=== PATIENT | female | born 1950 | race Caucasian/White ===

== ENCOUNTER 2021-02-25 08:25 | Emergency (ER) | payer MEDICARE, OTHER, SELFPAY ==
[2021-02-25 08:29] VITALS: BP 129/46; PULSE 73; RESP 18; TEMP 36.6; O2SAT 99; BMI 23.4
--- NOTE | 2021-02-25 08:53 | ED_ITS ---
HPI - Anxiety General Chief Complaint: Anxiety Stated Complaint: SHAKING FEELING Time Seen by Provider: 02/25/21 08:53 Source: patient Mode of arrival: ambulatory Limitations: no limitations History of Present Illness HPI narrative: patient feel anxious inside, she is concerned about her pacemaker. Patient does not take medication for anxiety. Patient has this feeling since last night. Patient states she is safe and no one is hurting her. No sexual abuse. Patient denies suicidal or homicidal ideation MD complaint: anxiety Onset (ago): hour(s) Symptoms: palpitations Severity: moderate Quality: constant Provoking factors: emotional stress Relieving factors: nothing Related Data Previous Rx's Medication Instructions Recorded hydroxyzine HCl 25 mg tablet 25 mg PO TID PRN #14 tab 02/25/21 Allergies Allergy/AdvReac Type Severity Reaction Status Date / Time No Known Allergies [NKA] Allergy Mild NOT Unverified 01/13/20 15:58 APPLICABLE Review of Systems Constitutional: Constitutional: Reports no additional constitutional complaint s Eyes: Eyes: Reports no additional eye complaints ENT: Denies dizziness Cardiovascular: Cardiovascular: Reports no additional cardiovascular complaints Respiratory: Respiratory: Reports as per HPI Gastrointestinal: Gastrointestinal: Reports no additional gastrointestinal complaints Genitourinary: Genitourinary: Reports no additional female genitourinary complaints Musculoskeletal: Musculoskeletal: Reports no additional musculoskeletal compla ints Integumentary/Breasts: Skin/Breast: Denies rash Neurologic: Reports system reviewed and no additional complaints, except as documented, Denies dizziness and Denies Sensory deficit (Neuro) Psychiatric: Psychiatric: Denies anxiety PMFSH Social History Social History Advance Directives: No Advance Directives Information Provided: Yes Physical Exam Vital Signs: Vital Signs: Last Vital Signs Temp 97.8 F 02/25/21 08:29 Pulse 73 02/25/21 08:29 Resp 18 02/25/21 08:29 BP 129/46 L 02/25/21 08:29 Pulse Ox 99 02/25/21 08:29 Body Mass Index 23.4 Const: Other: very anxious and tearful Nutritional Appearance: average body habitus Orientation/consciousness: oriented to person and patient oriented x3 Limitations: no limitations HENMT: Head: Yes normal to inspection Ears: external ears normal General nose exam: Normal external nose present Mouth: Normal oral and palatal mucosa present and oropharynx normal Throat: Yes posterior oropharynx normal Eyes: General: appearance normal, both eyes and all related structures Neck: Other: supple Neck: Yes normal visual inspection Chest: Chest palpation & inspection: normal inspection of the chest Resp: Auscultation: clear to auscultation bilaterally Cardio: Jugular venous distension: no JVD Rate: regular rate Rhythm: regular rhythm Heart sounds: S1 normal heart sound present and S2 normal hear t sound present GI: Inspection: Yes normal to inspection Palpation (GI): Soft to palpation, nontender and No hepatosplenomegaly present Auscultation: normal bowel sounds : General: Yes no CVA tenderness Back/Spine/Pelvis: Back: no CVA tenderness Skin: General skin exam: no rashes or lesions noted Neuro: General: oriented to person and patient oriented x3 Cranial nerves: Yes CN's II-XII intact bilaterally Motor exam (neuro): 5/5 motor strength present throughout Sensory Exam: No Sensory deficit (Neuro) Extrem: General: Yes normal to inspection Psych: Appearance: grossly normal Course Reevaluation(s) Reevaluation #1: patient appears more relaxed will dc home on atarax. Still stating that she is safe at home, no suicidal or homicidal ideations Time: 10:07 MDM - Anxiety ECG Data Attestation: I personally reviewed and interpreted this ECG as follows: Interpretation: Atrial paced rate 60, no st or twave changes Discharge Plan Discharge Clinical Impression: Acute anxiety Patient Disposition: Home, Self-Care Instructions: Anxiety (ED) Prescriptions: New hydroxyzine HCl 25 mg tablet 25 mg PO TID PRN (Reason: anxiety) Qty: 14 RF: 0 Referrals: Kevin Kevin MD [Primary Care Provider] - 1 week
--- NOTE | 2021-02-25 09:00 | ECG_ITS ---
Test Reason : anxiety Blood Pressure : / mmHG Vent. Rate : 062 BPM Atrial Rate : 062 BPM P-R Int : 204 ms QRS Dur : 080 ms QT Int : 408 ms P-R-T Axes : 000 020 022 degrees QTc Int : 414 ms Atrial-paced rhythm prior ekg showed vent paced beats QRS duration has decreased Referred By: Deric Avina Electronically Signed By:THIEN BRADLEY MD
[2021-02-25] MEDS: LORazepam 2 MG/ML VIAL 1 MG IM (09:10)
== END 2021-02-25 10:29 | disposition home or self-care (01) ==
PROVIDERS: Emergency Provider Emergency Medicine; PCP Internal Medicine
DX: F41.9 Anxiety disorder, unspecified (principal); E78.5 Hyperlipidemia, unspecified; Z95.0 Presence of cardiac pacemaker; Z79.899 Other long term (current) drug therapy
CPT/HCPCS: 93005; 96372; 99283; 99284; J2060

== ENCOUNTER 2021-03-11 09:40 | Emergency (ER) | payer MEDICARE, OTHER, SELFPAY ==
--- NOTE | ~2021-03-11 | XR_ITS ---
EXAMINATION: XR KNEE, RIGHT CLINICAL INFORMATION: Knee giving out COMPARISON: Previous x-ray June 2013 TECHNIQUE: Four views of the right knee. FINDINGS: Bone alignment is normal. No fracture or dislocation is seen. There is a bipartite patella. There may be subchondral cystic changes of the patella at the patellofemoral joint. Joint spaces are otherwise normal. There is no joint effusion. There is no joint effusion. XR/XR knee RT 4V IMPRESSION: Bipartite patella and question subchondral cystic changes at the patellofemoral joint.
[2021-03-11 09:44] VITALS: BP 140/68; PULSE 66; RESP 15; TEMP 36.7; O2SAT 97
[2021-03-11 10:39] VITALS: BP 140/68; PULSE 66; RESP 18; TEMP 36.7; O2SAT 97; BMI 24.0
--- NOTE | 2021-03-11 11:28 | ED_ITS ---
HPI - Extremity Problem General Chief complaint: Extremity Problem Stated complaint: not feeling well r leg and hands numbness Time Seen by Provider: 03/11/21 10:56 Source: patient Mode of arrival: ambulatory Limitations: no limitations History of Present Illness HPI Narrative: 70-year-old female presenting to the ED with complaints of her right knee giving out since this morning. She reports that she has not had any falls or injuries to the knee. She reports also her left fingertips feel cold although this has happened in the past and she does not believe it is related to her right knee giving out. She denies any dizziness, headaches, changes in vision, nausea/vomiting, neck pain/stiffness, chest pain or shortness of breath, dyspnea on exertion, orthopnea, numbness/tingling/paresthesias, back pain, fal ls, head trauma, focal weakness or general weakness, palpitations, lower extremity edema or calf tenderness or any other symptoms complaints or concerns at this time. Denies recent travel or sick contacts. MD Complaint: other (Right knee giving out) Onset (ago): day(s) (Started today) Pain Consistency: constant Location: right and knee Radiation: none Relieving factors: nothing Exacerbating factors: weight bearing and walking Associated symptoms: denies other symptoms Related Data Previous Rx's Medication Instructions Recorded hydroxyzine HCl 25 mg tablet 25 mg PO TID PRN #14 tab 02/25/21 Allergies Allergy/AdvReac Type Severity Reaction Status Date / Time No Known Allergies [NKA] Allergy Mild NOT Verified 03/11/21 10:41 APPLICABLE Review of Systems Review of Systems: Constitutional : No Weight loss, No Fever, No Chills, No Night Sweats, No Fatigue, No Malaise ENT/Mouth : No Hearing loss, No Ear Pain, No Nasal Congestion, No Sinus Pain, No Hoarseness, No sore throat, No Rhinorrhea, No Swallowing Difficulty Eyes: No Eye Pain, No Swelling, No Redness, No Foreign Body, No Discharge, No Vision Changes Cardiovascular : No Chest Pain, No SOB, No Dyspnea on Exertion, No Orthopnea, No Edema, No Palpitations Respiratory : No Cough, No Sputum, No Wheezing, No Smoke Exposure, No Dyspnea Gastrointestinal : No Nausea, No Vomiting, No Diarrhea, No Constipation, No abdominal Pain, No Hematochezia, No Melena Genitourinary : no irregular bleeding, No Dysuria, No Urinary Frequency, No Hematuria, No Urinary Incontinence, No Urgency, No Flank Pain, No Urinary Flow Changes, No Hesitancy Musculoskeletal : + right knee giving out, No joint pain, No Myalgias, No Joint Swelling Skin : No Skin Lesions, No rash Neuro : No Weakness, No Numbness, No Paresthesias, No Loss of Consciousness, No Dizziness, No Headache Psych : No Anxiety/Panic, No Depression, No SI/HI/AH/VH, No Social Issues, Heme/Lymph: No Bruising, No Bleeding,No Lymphadenopathy Endocrine : No Polyuria, No Polydipsia, No Temperature Intolerance Yes all other systems are reviewed and are negative [facility] Past Medical History Attestation statement: The following information was validated with the patient. Medical History Hyperlipidemia Pacemaker Social History Social History Advance Directives: No Advance Directives Information Provided: No Physical Exam Vital Signs: Vital Signs: Last Vital Signs Temp 98.1 F 03/11/21 10:39 Pulse 66 03/11/21 10:39 Resp 18 03/11/21 10:39 BP 140/68 H 03/11/21 10:39 Pulse Ox 97 03/11/21 10:39 Body Mass Index 24.0 Vital signs have been reviewed as normal and appeared to be correct. Blood pressure 140/68. Heart rate normal. Respiration rate normal. Temperature normal. Oxygen saturation normal. Appearance: Alert. Oriented X3. No acute distress. Head: Normal external exam. Normocephalic. Atraumatic. Able to rotate head bilaterally. Eyes: PERRLA. EOMI. No nystagmus noted. Conjunctiva and sclera normal. Eyelids normal. Corneal reflex normal. ENT: Hearing normal. Pharynx normal. Uvula midline. tongue midline. Moist mucous membranes. No trismus noted. No drooling noted. No muffled voice noted. No nystagmus noted. Neck: Normal inspection. Neck supple. FROM. No adenopathy. Trachea midline. Thyroid Normal. No meningeal signs. No neck mass noted. CVS: Normal heart rate and rhythm. Heart sound normal. No murmurs noted. Pulses normal throughout. Respiratory: No respiratory distress. Painless inspiration. Breath sounds normal. No wheezes/rales/rhonchi noted. Chest nontender. No accessory muscle usage noted or decreased air movement noted. Abdomen: Soft and nontender. Bowel sounds normal in all 4 quadrants. No distention noted. No organomegaly noted. No visible injury noted. Back: No CVA tenderness. Full range of motion noted. Skin: Skin warm and dry. Normal skin color. Normal skin turgor. No rashes/lesions/lacerations noted. Extremities: Patient does not have any tenderness palpation on palpation to the right knee she does not have any signs of infection there is no soft tissue swelling there is no obvious ligamentous or tendon injury. She has full range of motion of the right knee. There is no calf tenderness to bilateral legs. T here is No lower extremity edema. Otherwise all other Extremities exhibit normal range of motion and nontender. Able to shrug shoulders bilaterally and keep up against resistance. Neuro: Oriented X 3. No motor deficit. No sensory deficit. Reflexes normal. Moving all extremities. No focal motor deficits. Cranial nerves II-XI intact bilaterally. Facial strength normal. Normal cognition. Speech normal. Gait normal. Strength 5/5 throughout. No pronator drift. No tremor noted. No fasciculations noted. No rigidity noted. Muscle tone normal throughout. No asterixis noted. [id number] test normal. Heel to hernandes test normal. Tandem gait normal. Does not sway with eyes open. Romberg test negative. Rapid alternating movement upper extremity normal. Rapid alternating movement lower extremity normal. Hand drop from overhead Misses face. Course Course Course Narrative: - 70-year-old female presenting to the ED with complaints of her right knee giving out since this morning. She reports that she has not had any falls or injuries to the knee. She reports also her left fingertips feel cold although this has happened in the past and she does not believe it is related to her right knee giving out. On exam patient is alert and oriented x3. Not in any acute distress. No focal neuro deficits are noted. Lungs clear to auscultation. CV RRR. Full range of motion of all extremities. Neuro intact bilaterally distally on all 4 extremities. Reflexes intact bilaterally this can all 4 extremities. Normal steady gait. Will obtain x-ray of right knee and re-evaluate. Reevaluation(s) Reevaluation #1: - right x-ray revealed Bipartite patella and question subchondral cystic changes at the patellofemoral joint. - will place in an Dwayne wrap and refer to her PCP so she can get referral to therapy or orthopedic and to return if any new or worsening symptoms. Patient understands agrees with this plan. Time: 11:40 MDM - Extremity (Nontraumatic) Medical Records Attestation: I reviewed the patient's medical records. Lab Data Attestation: I reviewed the patient's lab results. Imaging Data Right knee x-ray: Attestation: I personally reviewed and interpreted this imaging study as follows: Radiologist's impression: FINDINGS: Bone alignment is normal. No fracture or dislocation is seen. There is a bipartite patella. There may be subchondral cystic changes of the patella at the patellofemoral joint. Joint spaces are otherwise normal. There is no joint effusion. There is no joint effusion.? XR/XR knee RT 4V IMPRESSION: Bipartite patella and question subchondral cystic changes at the patellofemoral joint. Discharge Plan Discharge Clinical Impression: Bipartite patella Patient Disposition: Home, Self-Care Instructions: Knee Pain (ED) Prescriptions: No Action hydroxyzine HCl 25 mg tablet 25 mg PO TID PRN (Reason: anxiety) Qty: 14 RF: 0 Referrals: Kevin Kevin MD [Primary Care Provider] - 2 days Print Language: American
== END 2021-03-11 11:52 | disposition home or self-care (01) ==
PROVIDERS: Emergency Provider Emergency Medicine; PCP Internal Medicine
DX: M25.561 Pain in right knee (principal); Q74.1 Congenital malformation of knee
CPT/HCPCS: 73564; 99283

== ENCOUNTER 2021-05-07 07:08 | Outpatient (REF) | payer MEDICARE, OTHER, SELFPAY | END 2021-05-07 07:09 | disposition home or self-care (01) | LOC: HO.HOSX 07:08 | PROVIDERS: Visit Provider Physician Assistant | DX: Z13.89 Encounter for screening for other disorder (principal) ==

== ENCOUNTER 2024-07-31 01:42 | Emergency (ER) | payer MEDICARE, OTHER, SELFPAY ==
[2024-07-31 01:45] VITALS: BP 150/43; PULSE 64; RESP 18; TEMP 36.8; O2SAT 98; BMI 25.4
--- NOTE | 2024-07-31 03:35 | ED_ITS ---
HPI - Extremity Problem General Chief complaint: Extremity Problem Stated complaint: leg pain Time Seen by Provider: 07/31/24 03:29 Source: patient Mode of arrival: ambulatory Limitations: no limitations History of Present Illness ED Provider: Dr. Dee Bustillos HPI Narrative: Patient comes to the emergency room complaining of bilateral lower extremity pain. Patient states the pain starts in the front of her left leg/hernandes and then the pain jumps to the right knee and then the pain jumped again to the left upper thigh. Patient states that she is concerned because she has a pacemaker. Patient denies muscle cramps. Patient denies calf pain, denies any swelling or any recent injuries. Related Data Previous Rx's ?Medication ?Instructions ?Recorded hydroxyzine HCl 25 mg tablet 25 mg PO TID PRN anxiety #14 tabs 02/25/21 Allergies Allergy/AdvReac Type Severity Reaction Status Date / Time No Known Allergies [NKA] Allergy Mild NOT Verified 07/31/24 01:47 APPLICABLE Review of Systems 2 Review of Systems: Constitutional : No Weight loss, No Fever, No Chills, No Night Sweats, No Fatigue, No Malaise ENT/Mouth : No Hearing loss, No Ear Pain, No Nasal Congestion, No Sinus Pain, No Hoarseness, No sore throat, No Rhinorrhea, No Swallowing Difficulty Eyes: No Eye Pain, No Swelling, No Redness, No Foreign Body, No Discharge, No Vision Changes Cardiovascular : No Chest Pain, No SOB, No Dyspnea on Exertion, No Orthopnea, No Edema, No Palpitations Respiratory : No Cough, No Sputum, No Wheezing, No Smoke Exposure, No Dyspnea Gastrointestinal : No Nausea, No Vomiting, No Diarrhea, No Constipation, No abdominal Pain, No Hematochezia, No Melena Genitourinary : no irregular bleeding, No Dysuria, No Urinary Frequency, No Hematuria, No Urinary Incontinence, No Urgency, No Flank Pain, No Urinary Flow Changes, No Hesitancy Musculoskeletal : Complaining of intermittent bilateral lower extremity pain, pain fluctuating from leg to leg. No joint pain, No Myalgias, No Joint Swelling Skin : No Skin Lesions, No rash Neuro : No Weakness, No Numbness, No Paresthesias, No Loss of Consciousness, No Dizziness, No Headache Psych : No Anxiety/Panic, No Depression, No SI/HI/AH/VH, No Social Issues, Heme/Lymph: No Bruising, No Bleeding,No Lymphadenopathy Endocrine : No Polyuria, No Polydipsia, No Temperature Intolerance PMF Past Medical History Medical History Hyperlipidemia Pacemaker Social History Social History Advance Directives: No Advance Directives Information Provided: Yes Physical Exam 2 Vital Signs: Vital Signs: Last Vital Signs Temp 98.2 F 07/31/24 01:45 Pulse 64 07/31/24 01:45 Resp 18 07/31/24 01:45 BP 150/43 H 07/31/24 01:45 Pulse Ox 98 07/31/24 01:45 O2 Del Method Room Air 07/31/24 01:45 BMI result Body Mass Index 25.4 Const: Other: Appearance: Alert. Oriented X3. No acute distress. Eyes: Pupils equal, round and reactive to light. ENT: Pharynx normal. Neck: Normal inspection. Neck supple. No lymph nodes noted. No crepitus CVS: Normal heart rate and rhythm. Pulses normal. Normal S1 and S2 Respiratory: No respiratory distress. Breath sounds normal. No Wheezing. No rales Abdomen: Soft and nontender. No rigidity. No distention. Skin: Skin warm and dry. Normal skin color. Normal skin turgor. Extremities: No lower extremity edema. No Lacerations. No Rash, no pain to palpation, no lower extremity erythema or edema Neuro: Oriented X 3. No motor deficit. No sensory deficit. Moving all extremities. No slurred speech. CN 2 through 12 grossly intact Psych: calm, cooperative, normal affect Course Course Course Narrative: Patient's labs pending Medications Administered Discontinued Medications Generic Name Dose Route Start Last Admin Trade Name Freq PRN Reason Stop Dose Admin Gabapentin 100 mg 07/31/24 03:35 07/31/24 03:51 Gabapentin 100 Mg Capsule PO 07/31/24 03:36 100 mg ONCE ONE Administration Medical Decision Making Medical Decision Making [facility] Narrative: My interpretation of labs: Patient's hemoglobin hematocrit in a bit decreased. Patient states she is known to have anemia. Chemistry does not show any acute abnormality, normal troponin, normal CPK. Patient was given gabapentin 100 mg Patient's electrolytes within normal limits. Discussed with the patient that if her legs hurt, she should stopped taking atorvastatin. Patient will follow-up with the primary care physician. Lab Data 07/31/24 03:46 07/31/24 03:46 Labs: Lab Results 07/31/24 Range/Units 03:46 WBC 6.2 (4.8-10.8) X10*3/uL RBC 3.62 L (4.20-5.50) X10*6/uL Hgb 10.9 L (12.0-16.0) g/dl Hct 32.9 L (37.0-47.0) % MCV 90.9 (80.0-98.0) fL MCH 30.1 (27.0-33.0) pg MCHC 33.1 (31.0-35.0) g/dl RDW 13.5 (11.0-16.0) % Plt Count 173 (160-400) X10*3/uL MPV 11.7 (9.4-12.3) fL Immature Gran % (Auto) 0.2 (0.0-0.4) % Neut % (Auto) 67.7 (45-73) % Lymph % (Auto) 17.2 L (20-40) % [place] % (Auto) 11.5 H (2-11) % Eos % (Auto) 2.6 (0-4) % Baso % (Auto) 0.8 (0-2) % Lymph # (Auto) 1.1 L (1.2-4.9) X10*3/uL [place] # (Auto) 0.7 (0.1-1.2) X10*3/uL Eos # (Auto) 0.2 (0.0-0.4) X10*3/uL Baso # (Auto) 0.1 (0.0-0.2) X10*3/uL Abs Immat Gran (auto) 0.01 (0.00-0.03) X10*3/uL Absolute Neuts (auto) 4.2 (2.0-8.3) x10*3/uL Absolute Nucleated RBC 0.000 (0.0-0.012) X10*3/uL Nucleated RBC % (auto) 0.0 (0.0-0.2) /100WBC Sodium 141 (135-145) mmol/L Potassium 4.4 (3.3-5.1) mmol/L Chloride 112 H (96-108) mmol/L Carbon Dioxide 23 (22-29) mmol/L Anion Gap 10 L (12-20) BUN 26 H (9-16) mg/dL Creatinine 1.05 (0.5-1.4) mg/dL Estim Creat Clear Calc 37.2 Estimated GFR 52 Random Glucose 92 (60-115) mg/dL Calcium 9.2 (8.4-10.2) mg/dL Magnesium 2.3 (1.6-2.6) mg/dL Total Bilirubin 0.4 (0.0-1.0) mg/dL Direct Bilirubin 0.1 (0.0-0.5) mg/dL AST 28 (5-31) U/L ALT 21 (0-31) U/L Alkaline Phosphatase 73 (39-117) U/L Total Creatine Kinase 101 (26-140) U/L Troponin I High Sens 4.5 (<3.5-17.0) ng/L Total Protein 7.0 (6.5-8.0) g/dL Albumin 4.2 (3.5-5.0) g/dL Discharge Plan Discharge Clinical Impression: Myalgia Patient Disposition: Home, Self-Care Instructions: Musculoskeletal Pain (ED) Additional Instructions: Please stop taking atorvastatin. Please have close follow-up with your primary care physician. Prescriptions: No Action hydroxyzine HCl 25 mg tablet 25 mg PO TID PRN (Reason: anxiety) Qty: 14 0RF Print Language: French
[2024-07-31 03:51] LABS: MANUAL DIFF FLAG NO
[2024-07-31] MEDS: Gabapentin 100 MG CAPSULE PO (03:51)
[2024-07-31 03:52] LABS: Basophils Absolute Auto 0.1 X10*3/uL (0.0-0.2); Basophils Percent Auto 0.8 % (0-2); Eosinophils Absolute Auto 0.2 X10*3/uL (0.0-0.4); Eosinophils Percent Auto 2.6 % (0-4); Hematocrit 32.9 % (37.0-47.0); Hemoglobin 10.9 g/dl (12.0-16.0); Imm Gran Abs Auto 0.01 X10*3/uL (0.00-0.03); Imm Gran Pct Auto 0.2 % (0.0-0.4); Lymphocytes Absolute Auto 1.1 X10*3/uL (1.2-4.9); Lymphocytes Percent Auto 17.2 % (20-40); Mean Corpuscular HGB Conc 33.1 g/dl (31.0-35.0); Mean Corpuscular Hemoglobin 30.1 pg (27.0-33.0); Mean Corpuscular Volume 90.9 fL (80.0-98.0); Mean Platelet Volume 11.7 fL (9.4-12.3); Monocytes Absolute Auto 0.7 X10*3/uL (0.1-1.2); Monocytes Percent Auto 11.5 % (2-11); Neutrophils Absolute Auto 4.2 x10*3/uL (2.0-8.3); Neutrophils Percent Auto 67.7 % (45-73); Platelet Count 173 X10*3/uL (160-400); Red Blood Count 3.62 X10*6/uL (4.20-5.50); Red Cell Distribution Width 13.5 % (11.0-16.0); White Blood Count 6.2 X10*3/uL (4.8-10.8)
--- NOTE | 2024-07-31 03:52 | PC.NURSE ---
pt medicated according to mar awaiting lab results
[2024-07-31 04:09] LABS: Alanine Aminotransferase 21 U/L (0-31); Albumin Level 4.2 g/dL (3.5-5.0); Alkaline Phosphatase 73 U/L (39-117); Anion Gap 10 (12-20); Aspartate Amino Transferase 28 U/L (5-31); Bilirubin Direct 0.1 mg/dL (0.0-0.5); Bilirubin Total 0.4 mg/dL (0.0-1.0); Blood Urea Nitrogen 26 mg/dL (9-16); Calcium 9.2 mg/dL (8.4-10.2); Carbon Dioxide 23 mmol/L (22-29); Chloride 112 mmol/L (96-108); Creatinine Clr Calc Pharmacy 37.2; Estimated Glomerular Filt Rate 52; Glucose Random 92 mg/dL (60-115); Magnesium 2.3 mg/dL (1.6-2.6); Potassium 4.4 mmol/L (3.3-5.1); Sodium 141 mmol/L (135-145)
[2024-07-31 04:14] LABS: Troponin-I High Sensitivity 4.5 ng/L (<3.5-17.0)
[2024-07-31 05:11] VITALS: BP 150/43; PULSE 64; RESP 18; TEMP 36.8; O2SAT 98
== END 2024-07-31 05:12 | disposition home or self-care (01) ==
PROVIDERS: Emergency Provider Emergency Medicine
DX: M79.10 Myalgia, unspecified site (principal); E78.5 Hyperlipidemia, unspecified; Z95.0 Presence of cardiac pacemaker; Z79.899 Other long term (current) drug therapy
CPT/HCPCS: 36415; 80048; 80076; 82550; 83735; 84484; 85025; 99283; 99284

== ENCOUNTER 2024-11-25 13:32 | Outpatient (AMB) | payer MEDICARE, OTHER, SELFPAY ==
--- OUTSIDE RECORDS SUMMARY | 2024-11-25 13:44 | XMS_ITS ---
Author Name [facility] Organization Unknown Care Team Organization Name Specialty Phone Email Start Date End Da te [facility] 10/04/2022 12/15/2023 [facility] Danni Linda [facility] 03/05/2022 12/15/2023
--- OUTSIDE RECORDS SUMMARY | 2024-11-25 13:44 | XMS_ITS | Clinical Summary ---
Author Organization [facility] Address [address] [place] [id number] Phone Care Team Providers Care Sales Service Manager Name Role Phone Kevin Kevin MD Primary Care Provider [phone] Immunizations Immunization Administration Dates Next Due COVID-19 (Pre-02/17) Moderna Vaccine, mRNA, PF 0 06/22/2020,05/25/2020 Social History Tobacco Use Types Packs/Day Years Used Date Smoking Tobacco: Never Assessed Education Answer Date Recorded Are you interested in more education? Not on tricia e 08/22/2022 Are you concerned about learning? Not on file 08/22/2022 No 08/22/2022 No 08/22/2022 Digital Access Answer Date Recorded No 09/23/2022 No 09/23/2022 No 09/23/2022 Reliable internet access at home? Not on file 09/23/2022 Device with a working camera? Not on file Comments Unknown Sex and Gender Information Value Date Recorded Sex Assigned at Not on file Legal Sex Female 7:20 PM EST Gender Identity Not on file Sexual Orientation Not on file Plan of Treatment Health Maintenance Due Date Last Done Comments DEPRESSION SCREENING 1963 SMOKING Hx and SMOKELESS TOBACCO SCREENING 11/21/1964 HEPATITIS C SCREENING 11/21/1969 COLOGUARD 11/21/1996 COLONOSCOPY 11/21/1996 COLORECTAL CANCER SCREENING 11/21/1996 FIT TEST 11/21/1996 FOBT 11/21/1996 SIGMOIDOSCOPY 11/21/1996 VIRTUAL COLONOSCOPY 11/21/1996 ZOSTER VACCINES (1 of 2) 11/21/2001 OSTEOPOROSIS SCREENING INITI AL (ONE-TIME) 11/21/2016 Adult Td,Tdap Booster 12/08/2021 12/09/2011 , 08/13/2000 MAMMOGRAM 03/20/2022 03/20/2020 COVID-19 VACCINE (3 - 2023-2 5 season) 2023 06/22/2020, 05/25/2020 LIPID PANEL 04/26/2025 04/26/2020 RSV VACCINE (1 - 1-dose 75+ series) 11/21/2026 PNEUMOCOCCAL VACCINES (50+ years) Completed 03/03/2019, 02/14/2017 HEPATITIS A VACCINES Aged Out No long er eligible based on patient's age to complete this topic HIB VACCINES Aged Out No longer eligi ble based on patient's age to complete this topic MENINGOCOCCAL VACCINES (ACWY) Aged Out No longer eligible based on patient's age to complete this topic MENINGOCOCCAL VACCINES (B) Aged Out N o longer eligible based on patient's age to complete this topic Medical Devices Not on file Insurance MEDICARE PART A & B [facility] MEDICARE SUPPLEMENT MEDICARE PART A & B [employer] MEDICARE SUPPLEMENT MEDICARE PART A & B [employer] MEDICARE SUPPLEMENT MEDICARE PART A & B [employer] MEDICARE SUPPLEMENT MEDICARE PART A & B [employer] MEDICARE SUPPLEMENT MEDICARE PART A & B [facility] MEDICARE SUPPLEMENT MEDICARE PART A & B [facility] MEDICARE SUPPLEMENT MEDICARE PART A & B [facility] MEDICARE SUPPLEMENT MEDICARE PART A & B [facility] MEDICARE SUPPLEMENT Care Teams Sales Service Manager Relationship Specialty Start Date End Date Kevin Kevin MD [address] [place] [id number] PCP - General Internal Medicine 05/24/20 Additional Source Comments The information contained in this document represents components of the legal health record. It is not the complete legal health record.[facility]
--- NOTE | 2024-11-25 13:45 | A.OFFVIS_ITS ---
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 She was treated with memantine and sertraline. She was here at the suggestion of her PCP after decline in memory was apparently noted at recent appointment. Office notes from PCP visit were requested, but were not available for review at the time of this appointment. She was here for appointment alone. Her appointment was scheduled for 3:50pm, however she thought appointment was scheduled for 1:50pm and therefore arrived early. She was very concerned after having some memory testing at her PCPs office and scoring too low. She also reports having difficulty drawing a clock. She was living at home with her . 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 She would double or triple check her work when paying bills. On a few occasions, she has written a check out to the wrong person or company. She was managing her own medications. She was feeling more confused. She also reported feeling weak, off balance, and having some numbness and cramping in R lower leg. She was walking on treadmill 5 days/week. No falls. Sleep was okay with medication. Mood was anxious and depressed. She could not do things that used to do and she was not able to spend as much time with her grandchildren. She was not working with therapist or psychiatrist. [facility] Medical History Hyperlipidemia Pacemaker Review of Systems Const Denies chills, Denies daytime sleepiness, Denies difficulty sleeping, Denies fatigue, Denies fever(s), Denies frequent falls, Denies headache(s), Denies increased appetite, Denies poor appetite, Denies snoring, Denies weakness, Denies weight gain and Denies weight loss Eyes Denies loss of vision ENT Denies vertigo, Denies dizziness and Denies headache(s) Card Denies chest pain at rest, Denies chest pain with activity, Denies syncope, Denies leg edema and Denies palpitations Resp Denies snoring GI Denies constipation, Denies heartburn, Denies diarrhea and Denies nausea Denies urinary frequency, Denies urinary incontinence and Denies urinary urgency Musc Denies abnormal gait, Denies numbness and Denies tingling Skin/Breast Denies dry skin and Denies rash Neuro Denies abnormal gait, Denies vertigo, Denies dizziness, Denies syncope, Denies frequent falls, Denies headache(s), Denies lack of coordination, Denies loss of vision, Reports memory loss, Denies numbness, Denies restless legs, Denies seizure-like activity, Denies tingling, Denies paresthesias, Denies tremor(s) and Denies weakness Psych Reports anxiety, Reports depression, Denies auditory hallucinations, Reports memory loss, Denies visual hallucinations and Denies suicidal ideation Endo Denies fatigue and Denies palpitations Physical Exam Const Other: General Appearance:? normal, in no acute distress. Skin:? no rashes, no significant birthmarks. Heart:? S1, S2 normal, no murmurs. Lungs:? clear anteriorly and posteriorly. Extremities:? no edema. Psych:? alert, cooperative with exam. Neuro Other: Mental Status:?Alert, anxious and tearful at times. MMSE 23/30 Cranial Nerves:?Pupils are equal, round and reactive to light. External occular muscles are intact. Visual sheikh are full. Face is symmetrical. Facial sensations are normal. Tongue is midline. Palate elevates symmetrically. Shoulder shrugging is normal. Hearing to bedside conversation is normal. Motor Exam: Hyperreflexia. Coordination:?No ataxia,?no titubation.? Gait Exam: Within normal limits. Cerebellar Signs:?Izvgnd-ce-[id number] and nyml-gr-[id number] is normal.? Extrapyramidal System:?No tremor, rigidity with normal facial expressions.? Pronator Drift:?Not present.? Involuntary Movements:?No tremors seen.? Speech:?Normal.? Results Reviewed Results Reviewed: Labs in [place] in 2021: CBC ok, HDL 74, LDL 102, A1c5.2, TSH 2.9, CEA 0.83, MRI brain WO at [place] in Jul 2021: mod to sev WM changes suggestive of MVD CT brain WO at [place] in Jul 2021: diff WM hypodensities MRI brain WWO at [facility] in Mar 2016: mod severe WM lesions, mostly supratentorial, post predominance, no enhancement, small amount in yoni, ?demylinating or atypical microvascular disease CT brain WO at [facility] [place] in 2013: WM hypodensities, especially left frontal, no atrophy. Assessment & Plan Assessment & Plan (1) Vascular dementia: Code(s): F01.50 - Vascular dementia, unspecified severity, without behavioral disturbance, psychotic disturbance, mood disturbance, and anxiety Category: Medical Qualifiers: Dementia behavioral or psychological symptom: with mood disturbance Dementia severity: unspecified severity Qualified Code(s): F01.53 - Vascular dementia, unspecified severity, with mood disturbance Plan: Resulting in memory impairment, behavioral symptoms, and imbalance. There is no specific treatment for this condition other than symptomatic management, and symptoms progress over time. Continue memantine 10mg 1 tablet twice a day. It has been 3 years since brain MRI has been done and test was ordered. 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 Stop sertraline 50mg 1 tablet daily. Continue sertraline 100mg 1 tablet daily. Start buproprion 100mg 1/2 tablet daily. Referral to psychiatrist placed. Plan Exam, findings, and plan reviewed with Dr. Peterson. Orders: Orders MR head/brain wo con Today F01.53 - Vascular dementia, unspecified severity, with mood disturbance, I67.850 - Cerebral autosomal dominant arteriopathy with subcortical infarcts and leukoencephalopathy Referrals Psychiatry Referral F32.A - Depression, unspecified Medications: New bupropion HCl 50 mg (1/2 x 100 mg) PO DAILY 15 tabs 1RF 30 days Discontinued sertraline Discontinued Reason: Doctor's Order 50 mg PO DAILY 90 days 90 tabs 1RF Coding Level of Care Code Est Pt Level 4 (08213) Diagnoses Vascular dementia with mood disturbance, unspecified dementia severity F01.53 Dementia behavioral or psychological symptom: with mood disturbance Dementia severity: unspecified severity Cerebral autosomal dominant arteriopathy with subcortical infarcts and leukoencephalopathy I67.850 Depression, unspecified depression type F32.A Depression Type: unspecified
== END 2024-11-25 15:41 | disposition home or self-care (01) ==
LOC: HO.HSM 13:32
PROVIDERS: PCP Internal Medicine; Visit Provider Registered Nurse
DX: F01.53 Vascular dementia, unspecified severity, with mood disturbance (principal); I67.850 Cerebral autosomal dominant arteriopathy with subcortical infarcts and leukoencephalopathy; F32.A Depression, unspecified
CPT/HCPCS: 99214

== ENCOUNTER → 2024-11-25 13:32 | Outpatient (BNVA) | payer MEDICARE, OTHER, SELFPAY | PROVIDERS: PCP Internal Medicine; Visit Provider Registered Nurse | DX: I67.850 Cerebral autosomal dominant arteriopathy with subcortical infarcts and leukoencephalopathy (principal); F01.53 Vascular dementia, unspecified severity, with mood disturbance; F32.A Depression, unspecified | CPT/HCPCS: 99212 ==

== ENCOUNTER → 2024-12-30 07:19 | Outpatient (BNV) | payer MEDICARE, OTHER, SELFPAY | PROVIDERS: Visit Provider Radiology Diagnostic Radiology | DX: R90.82 White matter disease, unspecified (principal); J34.89 Other specified disorders of nose and nasal sinuses | CPT/HCPCS: 70551 ==

== ENCOUNTER 2024-12-30 07:25 | Outpatient (REF) | payer MEDICARE, OTHER, SELFPAY ==
--- NOTE | ~2024-12-30 | MR_ITS ---
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 COMPARISON: None available. TECHNIQUE: MRI of the brain was obtained using routine sequences without contrast. FINDINGS: No restricted diffusion. Bilateral, patchy and confluent white matter in the periventricular white matter, basal ganglia, extracapsular, yoni hyperintense T2 FLAIR signal without associated susceptibility nor restriction. Numerous old lacunar infarcts with the cribriform pattern involving the corpus striatum nuclei and thalami. No acute intracranial hemorrhage, mass effect, midline shift, hydrocephalus or herniation.. Flow-void signal within the main cerebral vessels is normal. Sellar/suprasellar region demonstrates a superior convexity of the pituitary gland without overall measurement less than 10 mm. There is a 6 mm hypointense FLAIR signal within the sella turcica/pituitary gland. The pituitary stalk is midline and measures less than 2 mm in maximal thickness. The optic chiasm is intact without signal abnormality. Craniocervical junction demonstrates normal position of the cerebellar tonsils. No signal abnormality or volume loss in the hippocampi. No gross volume loss of the overall cerebral parenchyma. There is a mucosal thickening in the paranasal sinuses. There is volume loss of the left maxillary sinus. MR/MR head/brain wo con IMPRESSION: No acute stroke/nonhemorrhagic ischemia. No acute intracranial hemorrhage. 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 Chronic paranasal sinus disease, pronounced left maxillary sinus.. Electronically signed by: Fito Mathews MD 12/30/2024 09:04 AM EDT
--- OUTSIDE RECORDS SUMMARY | 2024-12-30 07:28 | XMS_ITS | Encounter Summary ---
Author Organization [facility] Address [address] [place] [address] Care Team Providers Care Carpet Tile Layer Name Role Phone Kevin Kevin MD Primary Care Provider [phone] Reason for Visit * Reason Onset Date Comments Difficulty Urinating 12/28/2024 Encounter Details Date Type Department Care Team ([facility] st Contact Info) Description 12/28/2024 Telephone Adult Medicine [facility] [address] [place] [phone] Kevin Kevin MD [address] [place] [address] Social History Tobacco Use Types Packs/Day Years Used Date Smoking Tobacco: Never Smokeless Tobacco: Never Alcohol Use Standard Drinks/Week Comments No 0 (1 standard drink = 0.6 oz pur e alcohol) Housing Instability Answer Date Recorde d Are you worried that in the next 2 months you may not have stable housing? No 11/23/2024 Food Access & Nutrition Answer Date Rec orded Do you have access to a vari ety of food including fruits and vegetables? No 11/23/2024 Access to Healthcare Answer Date Record ed Within the last 3 months, ho w many times did you visit the emergency department for your medical care? 1 11/23/2024 Health Literacy Answer Date Recorded How often do you need to hav e someone help you when you read instructions, pamphlets, or other written material from your doctor or pharmacy? Never 11/23/2024 Caregiver: How often do you need to have someone help you when you read instructions, pamphlets, or other written material from your doctor or pharmacy? Not on file 11/23/2024 Financial Risk Answer Date Recorded How hard is it for you to pa y for the very basics like food, housing, medical care, and air conditioning / heating? Very hard 11/23/2024 Transportation Answer Date Recorded Has the lack of transportati on kept you from meetings, work, or from getting things needed for daily living? No Has the lack of transportati on kept you from medical appointments or from getting medications? No 11/23/2024 Social Isolation Answer Date Recorded How often do you feel lonely or isolated from those around you? Sometimes 11/23/2024 Food Risk Answer Date Recorded Within the past 12 months we worried whether our food would run out before we got money to buy more. Never true 11/23/2024 Within the past 12 months th e food we bought just didn't last and we didn't have money to get more. Never true 11/23/2024 Dependent Care Answer Date Recorded Do you need help finding or paying for care for your loved ones. For example, children's minister or elderly care for an older adult? No 11/23/2024 Education Answer Date Recorded Do you think completing more education or training, like finishing a GED, going to college, or learning a trade, would be helpful for you? No 11/23/2024 Employment and Income Answer Date Recor ded During the last four weeks, have you been actively looking for work? No 11/23/2024 Living Situation Answer Date Recorded What is your living situation? 0 11/23/2024 Comments No Sex and Gender Information Value Date Recorded Sex Assigned at Not on file Legal Sex Female 3:00 AM EST Gender Identity Not on file Sexual Orientation Not on file documented as of this encounter Progress Notes * Cece Dorado - 12/28/2024 10:07 AM EDT ERROR documented in this encounter Plan of Treatment Upcoming Encounters Date Type Department Care Team (Late st Contact Info) Description 01/17/2025 2:00 PM EDT Office Visit Adult Medicine [facility] [address] [place], [place] [phone] El C[place]allos NP [address] [place], [place] documented as of this encounter Visit Diagnoses Not on filedocumented in this encounter Additional Health Concerns Assessment Noted Time PHQ-9 Depression Total Score: 1 11/24/19 25 11:39 AM EDT documented as of this encounter Care Teams Carpet Tile Layer Relationship Specialty Start Date End Date Kevin Kevin MD [address] [place] [address] PCP - General 02/25/1999 documented as of this encounter
--- OUTSIDE RECORDS SUMMARY | 2024-12-30 07:28 | XMS_ITS | Encounter Summary ---
Author Organization [facility] Address [address] [place] [address] Care Team Providers Care Toll Testboard Worker Name Role Phone eKvin Kevin MD Primary Care Provider [phone] Encounter Details Date Type Department Care Team (Late Contact Info) Description 10/28/2024 Lab Requisition [facility] Main Lab [address] [facility] [place] [phone] Lorenzo Paige PA [address] [place] [address] Pyuria Social History Tobacco Use Types Packs/Day Years Used Date Smoking Tobacco: Never Smokeless Tobacco: Never Alcohol Use Standard Drinks/Week Comments No 0 (1 standard drink = 0.6 oz pur e alcohol) Comments No Sex and Gender Information Value Date Recorded Sex Assigned at Not on file Legal Sex Female 3:00 AM EST Gender Identity Not on file Sexual Orientation Not on file documented as of this encounter Plan of Treatment Upcoming Encounters Date Type Department Care Team (Late st Contact Info) Description 01/17/2025 2:00 PM EDT Office Visit Adult Medicine [facility] [address], [place] [phone] [place]os NP [address], [place] documented as of this encounter Procedures Procedure Name Priority Date/Time Associated Diagnosis Comments CULTURE URINE Routine 10/28/2024 10:34 AM EDT Pyuria documented in this encounter Results * (ABNORMAL) Culture urine (10/28/2024 10:34 AM EDT) Culture, Urine >100,000 CFU/mL Escherichia coli(A) [place] 10/30/2024 9:26 AM EDT [facility] Urine Urine specimen from urethra / Unknown 10/28/2024 10:34 AM EDT 10/28/2024 1:33 PM EDT Narrative Organism Antibiotic Method Susceptibility Escherichia coli Amoxicillin/Clavulanate [place] 8 ug/ml: Susceptible Escherichia coli Ampicillin/Sulbactam [place] 16 ug/ml: Intermediate Escherichia coli Piperacillin/Tazobactam [place] <=4 ug/ml: Susceptible Escherichia coli Cefazolin (Urine) [place] 4 ug/ml: Susceptible Escherichia coli Cefoxitin [place] <=4 ug/ml: Susceptible Escherichia coli Ceftazidime [place] <=0.5 ug/ml: Susceptible Escherichia coli Ceftriaxone [place] <=0.25 ug/ml: Susceptible Escherichia coli Cefepime [place] <=0.12 ug/ml: Susceptible Escherichia coli Meropenem [place] <=0.25 ug/ml: Susceptible Escherichia coli Amikacin [place] 2 ug/ml: Susceptible Escherichia coli Gentamicin [place] <=1 ug/ml: Susceptible Escherichia coli Ciprofloxacin [place] <=0.06 ug/ml: Susceptible Escherichia coli Levofloxacin [place] <=0.12 ug/ml: Susceptible Escherichia coli Nitrofurantoin [place] <=16 ug/ml: Susceptible Escherichia coli Trimethoprim/Sulfamethoxazole [place] >=320 ug/ml: Resistant [facility] MICROBIOLOGY - GENERAL ORDER RAMY Final Result [facility] [address] [place] [address], documented in this encounter Visit Diagnoses Diagnosis Pyuria Other nonspecific finding on examination of urine documented in this encounter Care Teams Toll Testboard Worker Relationship Specialty Start Date End Date Kevin Kevin MD [address] [place] [address] PCP - General 02/25/1999 documented as of this encounter
--- OUTSIDE RECORDS SUMMARY | 2024-12-30 07:28 | XMS_ITS | Clinical Summary ---
Author Organization [facility] [address] [place] [address] [place] [phone] Phone Care Team Providers Care Driver/Guide Name Role Phone Kevin Kevin MD Primary Care Provider [phone] Allergies Active Allergy Reactions Criticality Noted Date Comments Nitrofurantoin 04/11/2014 Nausea and vomiting Venlafaxine Weakness 12/12/2005 DIZZY, WEAK, NAUSEA Medications memantine (NAMENDA) 10 mg tablet Take 1 tablet (10 mg total) by mouth 1 (one) time each day. Take 1 Tablet by mouth 2 times daily. Prescribed by neurology (For Dementia) Active multivitamin with minerals (CENTRUM) tablet Take 1 tablet by mouth 1 (one) time each day. Take by mouth daily. Patient Buy OTC Active sertraline (ZOLOFT) 100 mg tablet Take 1 tablet (100 mg total) by mouth 1 (one) time each day. Patient is take total of 150 mg daily. Medication is prescribed by Neurologist Active sertraline (ZOLOFT) 50 mg tablet Take 1 tablet (50 mg total) by mouth 1 (one) time each day. Patient is take total of 150 mg daily. Medication is prescribed by Neurologist Active Myrbetriq 50 mg 24 hr tabletIndications:E ncounter for examination following treatment at hospital,Encounter for screening for cardiovascular disorders,Pure hypercholesterolemi a,SSS (sick sinus syndrome) (CMS/HCC V24, CMS/HCC V28),Cerebrovascula r accident (CVA), unspecified mechanism (CMS/HCC V24, CMS/HCC V28),Chest pain, unspecified type Take 1 tablet (50 mg total) by mouth 2 (two) times a day. Prescribe by urologist at [facility] [place] Active cephalexin (KEFLEX) 500 mg capsuleIndications: Encounter for examination following treatment at hospital,Encounter for screening for cardiovascular disorders,Pure hypercholesterolemi a,SSS (sick sinus syndrome) (CMS/HCC V24, CMS/HCC V28),Cerebrovascula r accident (CVA), unspecified mechanism (CMS/HCC V24, CMS/HCC V28),Chest pain, unspecified type Take 1 capsule (500 mg total) by mouth 3 (three) times a day. 11/02/19 25 Active metoprolol succinate (TOPROL-XL) 50 mg 24 hr tabletIndications:E ncounter for examination following treatment at hospital,Encounter for screening for cardiovascular disorders,Pure hypercholesterolemi a,SSS (sick sinus syndrome) (CMS/HCC V24, CMS/HCC V28),Cerebrovascula r accident (CVA), unspecified mechanism (CMS/HCC V24, CMS/HCC V28),Chest pain, unspecified type Take 1 tablet (50 mg total) by mouth 1 (one) time each day. Do not crush or chew. 90 tablet 1 11/17/19 25 Active atorvastatin (LIPITOR) 40 mg tabletIndications:E ncounter for examination following treatment at hospital,Encounter for screening for cardiovascular disorders,Pure hypercholesterolemi a,SSS (sick sinus syndrome) (CMS/HCC V24, CMS/HCC V28),Cerebrovascula r accident (CVA), unspecified mechanism (CMS/HCC V24, CMS/HCC V28),Chest pain, unspecified type Take 1 tablet (40 mg total) by mouth 1 (one) time each day. 30 each 5 11/17/19 25 026 Active aspirin 81 mg EC tabletIndications:E ncounter for examination following treatment at hospital,Encounter for screening for cardiovascular disorders,Pure hypercholesterolemi a,SSS (sick sinus syndrome) (CMS/HCC V24, CMS/HCC V28),Cerebrovascula r accident (CVA), unspecified mechanism (CMS/HCC V24, CMS/HCC V28),Chest pain, unspecified type Take 1 tablet (81 mg total) by mouth 1 (one) time each day. 90 tablet 1 11/17/19 25 Active Active Problems Problem Noted Date Diagnosed Date Severe dementia with anxiety (CMS/HCC V24, CMS/H CC V28) 11/23/2024 Overview (11/23/2024): Complex with multiple components, history of stroke, anxiety, Alzheimer's disease, follows with neurology H. pylori infection 09/19/2021 SSS (sick sinus syndrome) ([facility] V24, [facility] V28) 03/25/2018 Forgetfulness 12/22/2017 White matter disease, unspecified 12/22/2017 Cervical high risk HPV (human papillomavirus) te st positive 07/31/2017 Dyspareunia in female 07/28/2017 Overview (04/27/2024): Last Assessment & Plan: Explained to Vicky that usually one would continue Estrace cream indefinitely to avoid recurrence of atrophy symptoms. She will consider restarting if her symptoms recur, but would like to wait for now. Vaginal atrophy 07/28/2017 Overview (04/27/2024): Last Assessment & Plan: Will restart Estrace. Has at home, but Rx given again. She was counseled re: relative safety compared with systemic estradiol therapy given not well absorbed from vaginal tissue into the systemic blood stream. I explained her stroke is not a contraindication to use of topical estradiol. She understood and agreed. 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 Headache 10/21/2007 Overview (04/27/2024): Hospitalization at [facility], , carotid US (-) Fibromyalgia 10/24/2006 Overview (04/27/2024): RF + at 10 onset 2003 IMO update Assessment & Plan (11/23/2024 12:29 PM EDT): Resolved Problems Problem Noted Date Diagnosed Date Resolved Date Cardiac pacemaker in situ 10/31/2005 Encounters Date Type Department Care Team Description 12/28/2024 Telephone Adult [address] [phone] Kevin Kevin MD 11/24/2024 Telephone Adult [address] [phone] Kevin Kevin MD 11/23/2024 11:15 AM EDT Office Visit Adult [address] [phone] Kevin Kevin MD Routine general medical examination at a health care facility (Primary Dx); Agoraphobia with panic disorder; Fibromyalgia; Pulmonary nodule; Dementia with anxiety, unspecified dementia severity, unspecified dementia type (CMS/[facility] V24, CMS/[facility] V28) 11/23/2024 Telephone Adult [address] [phone] Kevin Kevin MD 11/18/2024 Telephone Adult [address] [phone] Kevin Kevin MD 11/16/2024 1:30 PM EDT Office Visit Adult [address] [phone] El Cevallos NP Chest pain, unspecified type (Primary Dx); Palpitation; SSS (sick sinus syndrome) (CMS/HCC V24, CMS/HCC V28); Pulmonary nodule; Acute cystitis without hematuria; 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, psychotic disturbance, mood disturbance, or anxiety (CMS/HCC V24, CMS/[facility] V28); Cerebrovascular accident (CVA), unspecified mechanism ([facility] V24, [facility] V28); Pure hypercholesterolemia; Overactive bladder; Encounter for screening for cardiovascular disorders; Encounter for examination following treatment at hospital 11/15/2024 Telephone Adult Medicine [address] [phone] Kevin Kevin MD 10/28/2024 Lab Requisition [facility] [address] [facility] [place] [address] Lorenzo Paige PA Pyuria from Last 3 Months Immunizations Name Administration Dates Next Due Influenza Quadravalent, MDCK , 0.5ml, preservative free (Flucelvax) 6mo and older 02/18/2020 Influenza trivalent, 0.5mL (Fluad) 65yo and olde r 04/29/2023,02/19/2022 PPD Test 05/03/2015 Pneumococcal conjugate 13 va lent (Prevnar 13, PCV13) 2mo and older 02/14/2017 Pneumococcal polysaccharide 23 valent (Pneumovax 23) 2yo and older 03/03/2019 Td Tetanus diptheria (Tdvax) 7yo and older 08/13 Tdap Tetanus diptheria acell ular pertussis (Boostrix; Adacel) 7yo and older 12/18/2021,12/09/2011 Zoster recombinant (Shingrix) 19yo and older Surgical History Surgery Date Site/Laterality Comments PACEMAKER IMPLANT 04/28/2002 PROCEDURE: HISTORICAL PACEMAKER CHOLECYSTECTOMY PROCEDURE: HISTORICAL CHOLECYSTECTOMY TONSILLECTOMY PROCEDURE: HISTORICAL TONSILLECTOMY PACEMAKER IMPLANT 03/28/2014 PROCEDURE: HISTORICAL PACEMAKER; COMMENT: pacemaker revision SECTION PROCEDURE: HISTORICAL DELIVERY Medical History Medical History Date Comments Other specified cardiac dysrhythmias(427.89) 2002 DX:Other specified cardiac dysrhythmias(427.89); COMMENT: pacemaker Myalgia and myositis, unspecified 10/24/2006 DX:Myalgia and myositis, unspecified; COMMENT: RF + at 10 onset 2003 Migraine 07/16/2007 DX:Migraine Headache(784.0) 10/21/2007 DX:Headache(784. 0); COMMENT: Hospitalization at [facility], carotid US (-) Atypical chest pain 04/18/2008 DX:Atypical chest pain; COMMENT: Exercise stress test, CT angiogram negative. See cardiology notes 2004 Anxiety state, unspecified 07/07/2005 DX:An xiety state, unspecified; COMMENT: Panic attacks; depression Seen by Dr. Lindsey Stroke ([facility] V24, [facility] V28) 03/30/2010 DX:Stroke (HCC) Pure hypercholesterolemia 03/30/2010 DX:Pur e hypercholesterolemia Other specified cardiac dysrhythmias(427.89) DX:Other specified cardiac dysrhythmias(427.89) Family History Medical History Relation Name Comments No Known Problems Aunt Heart attack Brother age 56 Stroke Father age 77 No Known Problems Maternal Grandfather No Known Problems Maternal Grandmother Diabetes Mother No Known Problems Other No Known Problems Paternal Grandfather No Known Problems Paternal Grandmother No Known Problems Sister No Known Problems Uncle Blindness Neg Hx Breast cancer Neg Hx Cataracts Neg Hx Colon cancer Neg Hx Glaucoma Neg Hx Macular degeneration Neg Hx Ovarian cancer Neg Hx Pancreatic cancer Neg Hx Prostate cancer Neg Hx Strabismus Neg Hx Uterine cancer Neg Hx Relation Name Status Comments Aunt Brother Father Maternal Grandfather Maternal Grandmother Mother Other Paternal Grandfather Paternal Grandmother Sister Uncle Social History Tobacco Use Types Packs/Day Years Used Date Smoking Tobacco: Never Smokeless Tobacco: Never Tobacco Cessation:Counseling Given: Not Answered Alcohol Use Standard Drinks/Week Comments No 0 [...] care for your loved ones. For example, early childhood or elderly care for an older adult? [...] on file Sexual Orientation Not on file Obstetrics History Para Term AB IAB SAB Ectopic Multiple Livin g Live Births 1 1 1 1 Date Outcome GA Total Labor Labor/2nd/3rd Weight Sex Type Anes PTL Rachel A1 A5 Name Clin Term Last Filed Vital Signs Vital Sign Reading Time Taken Comments Blood Pressure 101/66 11/23/2024 11:28 AM EDT Pulse 88 11/23/2024 11:28 AM EDT Temperature 36.8 C (98.3 F) 11/23/2024 11:28 AM EDT Respiratory Rate 16 11/23/2024 11:28 AM EDT Oxygen Saturation 98% 08/11/2024 9:34 AM EDT Inhaled Oxygen Concentration - - Weight 58.1 kg (128 lb) 11/23/2024 11:28 AM EDT Height 149.9 cm (4' 11 ) 11/23/2024 11:28 AM EDT Body Mass Index 25.85 11/23/2024 11:28 AM EDT Plan of Treatment Upcoming Encounters Date Type Department Care Team (Late st Contact Info) Description 01/17/2025 2:00 PM EDT Office Visit Adult Medicine [facility] [address], [place] [phone] El Cevallos NP [address], [place] Health Maintenance Due Date Last Done Comments Zoster Vaccines (2 of 2) 02/18/2011 12/24/2010 Colorectal Cancer Screening: Colonoscopy 04/06/2022 Medicare Annual Wellness Visit 04/06/2022 Cervical Cancer Screening: HPV 07/28/2022 07/28/2017 COVID-19 Vaccine ( season) 2024 04/26/2022, 09/20/2021, 04/19/2021, Additional history exists Influenza Vaccine (#1) 2024 , 02/19/2022, 02/18/2020 Hypertension/CHF/CAD Annual BMP Blood Test 11/17/2025 11/17/2024, 04/29/2023 Falls Risk Assessment 11/23/2025 11/23/2024 Social Influencers of Health Screening 11/23/2025 11/23/2024 Breast Cancer Screening 04/29/2026 04/29/19 25, 04/14/2023, 04/12/2022, Additional history exists RSV Immunization Adult Patients (1 - 1-dose 75+ series) 11/21/2026 Cholesterol Screening (Lipid Panel) 11/17/2029 11/17/2024, 04/29/2023 Osteoporosis Screening (Bone Density Screening) 11/24/2031 11/23/2021, 03/10/2017 DTaP,Tdap,and Td Vaccines (4 - Td or Tdap) 12/19/2031 12/18/2021, 12/09/2011, 08/13/2000 Hepatitis C Screening Completed 09/06/2014 Pneumococcal Vaccine: 50+ Years Completed 03/03/2019, 02/14/2017 Depression Screening Completed 11/23/2024 HIB Vaccines Aged Out No longer eligi ble based on patient's age to complete this topic HPV Vaccines Aged Out No longer eligi ble based on patient's age to complete this topic Hepatitis A Vaccines Aged Out No long er eligible based on patient's age to complete this topic Hepatitis B Vaccines Aged Out No long er eligible based on patient's age to complete this topic IPV Vaccines Aged Out No longer eligi ble based on patient's age to complete this topic MMR Vaccines Aged Out No longer eligi ble based on patient's age to complete this topic Meningococcal ACWY Vaccine Aged Out N o longer eligible based on patient's age to complete this topic Meningococcal B Vaccine Aged Out No l onger eligible based on patient's age to complete this topic RSV Immunization Patients Under 20 months Aged Out No longer eligible based on patient's age to complete this topic Varicella Vaccines Aged Out No longer eligible based on patient's age to complete this topic Procedures Procedure Name Priority Date/Time Associated Diagnosis Comments VITAMIN B12 AND FOLATE Routine 12/03/2024 1:44 PM EDT Dementia with anxiety, unspecified dementia severity, unspecified dementia type ([facility] V24, [facility] V28) LIPID PANEL WITH REFLEX TO DIRECT LDL Routine 11/17/2024 12:00 PM EDT Encounter for examination following treatment at hospital Encounter for screening for cardiovascular disorders Pure hypercholesterolemia SSS (sick sinus syndrome) ([facility]/HCC V24, CMS/[facility] V28) Cerebrovascular accident (CVA), unspecified mechanism (CMS/HCC V24, CMS/[facility] V28) Chest pain, unspecified type THYROID STIMULATING HORMONE WITH REFLEX TO FREE T4 AND FREE T3 Routine 11/17/2024 12:00 PM EDT Encounter for examination following treatment at hospital Encounter for screening for cardiovascular disorders Pure hypercholesterolemia SSS (sick sinus syndrome) (CMS/HCC V24, CMS/[facility] V28) Cerebrovascular accident (CVA), unspecified mechanism (CMS/HCC V24, CMS/[facility] V28) Chest pain, unspecified type COMPREHENSIVE METABOLIC PANEL Routine 11/17/2024 12:00 PM EDT Encounter for examination following treatment at hospital Encounter for screening for cardiovascular disorders Pure hypercholesterolemia SSS (sick sinus syndrome) (CMS/HCC V24, CMS/[facility] V28) Cerebrovascular accident (CVA), unspecified mechanism (CMS/HCC V24, CMS/[facility] V28) Chest pain, unspecified type CULTURE URINE Routine 10/28/2024 10:34 AM EDT Pyuria MG MAMMO DIGITAL SCREENING W CHANDLER BILAT Routine 04/29/2024 2:53 PM EST Encounter for screening mammogram for breast cancer DXA BONE DENSITY STUDY 1+ SITS AXIAL SKEL Routine 11/23/2021 11:06 AM EDT Encounter for general adult medical examination without abnormal findings Cerebral infarction, unspecified ([facility] V24, CMS/[facility] V28) Presence of cardiac pacemaker Pure hypercholesterolemia, unspecified Vitamin D deficiency, unspecified Unspecified dyspareunia (CODE) Other specified disorders of bone density and structure, unspecified site HPV Routine 07/28/2017 HEPATITIS C SCREENING Routine 09/06/2014 from Last 3 Months or Most Recently Relevant to Health Maintenance Results * (ABNORMAL) Vitamin B12 and folate (12/03/2024 1:44 PM EDT) Vitamin B-12 597 250 - 900 pcg/mL LAB CHEMISTRY METHOD 12/03/2024 5:37 PM EDT [facility] Folate >20.0(H) 2.8 - 17.0 ng/ml LAB CHEMISTRY METHOD 12/03/2024 5:37 PM EDT [facility] Blood Venous blood specimen / Unknown Venipuncture / Unknown 12/03/2024 1:44 PM EDT 12/03/2024 1:44 PM EDT Kevin Kevin MD LAB BLOOD ORDERABLES Final Resul t Performing Organization Address City/[facility]/ZIP Co de Phone Number [facility] [address] [place] [address], [place] [phone] * Thyroid stimulating hormone with reflex to free t4 and free t3 (11/17/2024 12:00 PM EDT) Pathologist [facility] TSH 1.56 0.40 - 4.00 mcIU/mL LAB CHEMISTRY METHOD 11/17/2024 4:18 PM EDT [facility] Blood Venous blood specimen / Unknown Venipuncture / Unknown 11/17/2024 12:00 PM EDT 11/17/2024 12:03 PM EDT El Cevallos NP LAB BLOOD ORDERABLES Final R esult Performing Organization Address [facility]/ZIP Co de Phone Number [facility] [address] [place] [address], [place] [phone] * (ABNORMAL) Lipid panel with reflex to direct LDL (11/17/2024 12:00 PM EDT) [facility] Cholesterol 197 0 - 200 mg/dL LAB CHEMISTRY METHOD 11/17/2024 3:17 PM EDT [facility] Triglycerides 94 0 - 150 mg/dL LAB CHEMISTRY METHOD 11/17/2024 3:17 PM EDT [facility] HDL 77 >=40 mg/dL LAB CHEMISTRY METHOD 11/17/2024 3:17 PM EDT [facility] LDL Calculated 101(H) 0 - 100 mg/dL LAB CHEMISTRY METHOD 11/17/2024 3:17 PM EDT [facility] VLDL Cholesterol Missael 18.8 mg/dL LAB CHEMISTRY METHOD 11/17/2024 3:17 PM EDT [facility] Non HDL Chol. (LDL+VLDL) 120 <145 mg/dL LAB CHEMISTRY METHOD 11/17/2024 3:17 PM EDT [facility] Chol/HDL Ratio 2.6 0.0 - 4.4 LAB CHEMISTRY METHOD 11/17/2024 3:17 PM T [facility] Blood Venous blood specimen / Unknown Venipuncture / Unknown 11/17/2024 12:00 PM EDT 11/17/2024 12:03 PM EDT us El Cevallos HAND PATTERN MARKER LAB BLOOD ORDERABLES Final R esult [facility] [address] [place] [address], [place] [phone] * Comprehensive metabolic panel (11/17/2024 12:00 PM EDT) Sodium 141 133 - 145 mmol/L LAB CHEMISTRY METHOD 11/17/2024 3:17 PM [facility] Potassium 3.9 3.5 - 5.5 mmol/L LAB CHEMISTRY METHOD 11/17/2024 3:17 PM [facility] Chloride 109 96 - 110 mmol/L LAB CHEMISTRY METHOD 11/17/2024 3:17 PM [facility] CO2 26 21 - 32 mmol/L LAB CHEMISTRY METHOD 11/17/2024 3:17 PM [facility] Anion Gap 6 3 - 11 LAB CHEMISTRY METHOD 11/17/2024 3:17 PM [facility] Glucose 99 70 - 100 mg/dL LAB CHEMISTRY METHOD 11/17/2024 3:17 PM [facility] BUN 17 5 - 25 mg/dL LAB CHEMISTRY METHOD 11/17/2024 3:17 PM [facility] Creatinine 0.89 0.50 - 1.10 mg/dL LAB CHEMISTRY METHOD 11/17/2024 3:17 PM [facility] eGFR 69 >=60 mL/min/1. 73m2 LAB CHEMISTRY METHOD 11/17/2024 3:17 PM EDT [facility] Comment:Calculation based on the Chronic Kidney Disease Epidemiology Collaboration (CKD-EPI) equation refit without adjustment for race. BUN/Creatinine Ratio 19.1 LAB CHEMISTRY METHOD 11/17/2024 3:17 PM T [facility] Calcium 9.2 8.5 - 10.5 mg/dL LAB CHEMISTRY METHOD 11/17/2024 3:17 PM [facility] AST (SGOT) 21 10 - 42 unit/L LAB CHEMISTRY METHOD 11/17/2024 3:17 PM [facility] ALT (SGPT) 21 10 - 60 unit/L LAB CHEMISTRY METHOD 11/17/2024 3:17 PM [facility] Alkaline Phosphatase 72 42 - 121 unit/L LAB CHEMISTRY METHOD 11/17/2024 3:17 PM [facility] Total Protein 7.0 6.0 - 8.0 g/dL LAB CHEMISTRY METHOD 11/17/2024 3:17 PM [facility] Albumin 4.0 3.2 - 5.0 g/dL LAB CHEMISTRY METHOD 11/17/2024 3:17 PM [facility] Total Bilirubin 0.3 0.0 - 1.4 mg/dL LAB CHEMISTRY METHOD 11/17/2024 3:17 PM [facility] Blood Venous blood specimen / Unknown Venipuncture / Unknown 11/17/2024 12:00 PM EDT 11/17/2024 12:03 PM EDT us El Cevallos HAND PATTERN MARKER LAB BLOOD ORDERABLES Final R esult [facility] [address] [place] [address], * (ABNORMAL) Culture urine (10/28/2024 10:34 AM EDT) Culture, Urine >100,000 CFU/mL Escherichia coli(A) [place] 10/30/2024 9:26 AM EDT [facility] Urine Urine specimen from urethra / [...] Escherichia coli Trimethoprim/Sulfamethoxazole [place] >=320 ug/ml: Resistant us Lorenzo KOO LAB MICROBIOLOGY - GENERAL ORDER RAMY Final Result [facility] [address] [place] [address], [place] [phone] * MG Mammo Digital Screening w Chandler bilat (04/29/2024 2:53 PM EST) Anatomical Region Laterality Modality Breast Bilateral Mammography 04/30/2024 12:2 6 PM EST Impressions 04/30/2024 12:31 PM EST 1. No mammographic evidence of malignancy 2. Scattered fibroglandular tissue BI-RADS CATEGORY: 2 - BENIGN RECOMMENDATION: Screening bilateral mammogram is recommended in 1 year. Mammo Location: [facility], [address], [place], [address], . -------- FINAL REPORT -------- Dictated By: Grabiel Aguilar Dictated Date: 04/30/2024 12:26 ET Assigned Physician: Grabiel Aguilar Reviewed and Electronically Signed By: Grabiel Aguilar Signed Date: 04/30/2024 12:31 ET Workstation ID: [id number] Transcribed By: Self Edit Transcribed Date: 04/30/2024 12:26 ET Narrative 04/30/2024 12:31 PM EST A BILATERAL DIGITAL 3D SCREENING MAMMOGRAPHY HISTORY: Routine screening. No family history of breast cancer. COMPARISON: Multiple priors dating back to 03/20/2020 Technique: Bilateral full field digital mammography (3D) was performed using standard CC and MLO projections CAD was used to evaluate this mammogram. FINDINGS: Right: No suspicious masses, groups of microcalcification or areas of architectural distortion identified. Stable typically benign parenchymal asymmetries. Axillary cardiac device is present. Left: No suspicious masses, groups of microcalcification or areas of architectural distortion identified. Stable typically benign parenchymal asymmetries. Scattered typically benign calcifications within the lower inner breast. BREAST DENSITY: B - There are scattered areas of fibroglandular density. Procedure Note Grabiel Aguilar MD - 04/30/2024 A BILATERAL DIGITAL 3D SCREENING MAMMOGRAPHY HISTORY: Routine screening. No family history of breast cancer. COMPARISON: Multiple priors dating back to 03/20/2020 Technique: Bilateral full field digital mammography (3D) was performedusing standard CC and MLO projections CAD was used to evaluate this mammogram. FINDINGS: Right: No suspicious masses, groups of microcalcification or areas ofarchitectural distortion identified. Stable typically benign parenchymalasymmetries. Axillary cardiac device is present. Left: No suspicious masses, groups of microcalcification or areas ofarchitectural distortion identified. Stable typically benign parenchymalasymmetries. Scattered typically benign calcifications within the lowerinner breast. BREAST DENSITY: B - There are scattered areas of fibroglandular density. IMPRESSION: 1. No mammographic evidence of malignancy 2. Scattered fibroglandular tissue BI-RADS CATEGORY: 2 - BENIGN RECOMMENDATION: Screening bilateral mammogram is recommended in 1 year. Mammo Location: [facility], [address] [place] [address], [id number], . -------- FINAL REPORT -------- Dictated By: Grabiel Aguilar Dictated Date: 04/30/2024 12:26 ET Assigned Physician: Grabiel Aguilar Reviewed and Electronically Signed By: Grabiel Aguilar Signed Date: 04/30/2024 12:31 ET Workstation ID: [id number] Transcribed By: Self Edit Transcribed Date: 04/30/2024 12:26 ET Kevin Kevin MD IMG BI PROCEDURES Final Result * DXA BONE DENSITY STUDY 1+ SITS AXIAL SKEL (11/23/2021 11:06 AM EDT) Anatomical Region Laterality Modality Bone Densitometr y 05/16/2021 2:08 PM EST Narrative 11/23/2021 3:54 PM EDT BONE DENSITY Lumbar Spine T-score is -2.2 (SD relative to 20-29 y/o adult) Z-score is -0.1 (SD relative to age matched peers) This is consistent with osteopenia by criteria defined by the WHO. Left Hip T-score is -1.2 Z-score is +0.3 This is consistent with osteopenia by criteria defined by the WHO. Comparison exam(s): significant decrease in bone density of hip and lumbar spine when compared to most recent bone density examination Confidence level is +/-95%. Impression: Based on the World Health Organization criteria, Vicky Payne should be classified as having osteopenia. This patient has a 5.3% risk of major osteoporotic fracture and a 0.7% risk of hip fracture over the next 10 years. (World Health Organization Fracture Risk Assessment) [facility] Department of Internal Medicine recommends using National Osteoporosis Foundation (NOF) guidelines in treatment decisions related to osteoporosis. NOF guidelines suggest considering treatment for postmenopausal women and men aged 50 or older presenting with the following: History of hip or vertebral fracture. T-score less than or equal to -2.5 (DXA) at the femoral neck, total hip, or spine, after appropriate evaluation to exclude secondary causes. Low bone mass (T-score between -1.0 and -2.5 at the femoral neck or spine) AND a 10-year probability of a hip fracture greater than or equal to 3% OR a 10-year probability of a major osteoporosis-related fracture greater than or equal to 20% based on the [place]-adapted WHO algorithm Please note that all treatment decisions require clinical judgment and consideration of individual patient factors, including patient preferences, co-morbidities, previous drug use, risk factors not captured in the FRAX model (e.g., frailty, falls, vitamin D deficiency, increased bone turnover, interval significant decline in bone density) and possible under- or over-estimation of fracture risk by FRAX. Procedure Note Waylon Bingham MD - 04/16/2022 BONE DENSITY Lumbar Spine T-score is -2.2 (SD relative to 20-29 y/o adult) Z-score is -0.1 (SD relative to age matched peers) This is consistent with osteopenia by criteria defined by the WHO. Left Hip T-score is -1.2 Z-score is +0.3 This is consistent with osteopenia by criteria defined by the WHO. Comparison exam(s): significant decrease in bone density of hip andlumbar spine when compared to most recent bone density examination Confidence level is +/-95%. Impression: Based on the World Health Organization criteria, Vicky Payne should beclassified as having osteopenia. This patient has a 5.3% risk of majorosteoporotic fracture and a 0.7% risk of hip fracture over the next 10years. (World Health Organization Fracture Risk Assessment) [facility] Department of Internal Medicine recommendsusing National Osteoporosis Foundation (NOF) guidelines in treatmentdecisions related to osteoporosis. NOF guidelines suggest consideringtreatment for postmenopausal women and men aged 50 or older presentingwith the following: History of hip or vertebral fracture. T-score less than or equal to -2.5 (DXA) at the femoral neck, total hip,or spine, after appropriate evaluation to exclude secondary causes. Low bone mass (T-score between -1.0 and -2.5 at the femoral neck or spine)AND a 10-year probability of a hip fracture greater than or equal to 3% ORa 10-year probability of a major osteoporosis-related fracture greaterthan or equal to 20% based on the [place]-adapted WHO algorithm Please note that all treatment decisions require clinical judgment andconsideration of individual patient factors, including patientpreferences, co-morbidities, previous drug use, risk factors not capturedin the FRAX model (e.g., frailty, falls, vitamin D deficiency, increasedbone turnover, interval significant decline in bone density) and possibleunder- or over-estimation of fracture risk by FRAX. Danni Linda HAND PATTERN MARKER IMG DXA PROCEDURES Final R esult * Cervical Cancer Screening: HPV (07/28/2017) [facility] Cervical Cancer Screening: HPV Negative Abstracted Historical Provider HEALTH MAINTENANCE Final Result * Hepatitis C Screening (09/06/2014) [facility] Hepatitis C Screening Abstracted Historical Provider HEALTH MAINTENANCE Final Result from Last 3 Months or Most Recently Relevant to Health Maintenance Insurance MEDICARE [facility] Care Teams Driver/Guide Relationship Specialty Start Date End Date Kevin Kevin MD [address] [place] [address] [facility] - General 02/25/1999
--- OUTSIDE RECORDS SUMMARY | 2024-12-30 07:29 | XMS_ITS | Clinical Summary ---
Author Organization [facility] Address [address] [place] [phone] Phone Care Team Providers Care Tobacco Stemmer Machine Name Role Phone Kevin Kevin MD Primary Care Provider [phone] Immunizations Immunization Administration Dates Next Due COVID-19 [...] - 2023-2 5 season) 2023 06/22/2020, 05/25/2020 INFLUENZA VACCINE (#1) 2024 02/18/2020 LIPID PANEL 04/26/2025 04/26/2020 RSV VACCINE (1 [...] file Insurance MEDICARE PART A & B [facility] [employer] MEDICARE SUPPLEMENT MEDICARE PART A & B [employer] MEDICARE SUPPLEMENT MEDICARE PART A & B [employer] MEDICARE SUPPLEMENT MEDICARE PART A & B [employer] MEDICARE SUPPLEMENT MEDICARE PART A & B [employer] MEDICARE SUPPLEMENT MEDICARE PART A & B [facility] [employer] MEDICARE SUPPLEMENT MEDICARE PART A & B Member Subscriber Plan / Payer ( fective 2016-Present) Name:Loreta Payne Member ID:[id number] Relation to Subscriber:Self Name:Loreta Payne Subscriber ID:[id number] Payer ID:[id number] Group ID:Not on file Type:Medicare Address: [employer] [address] [place] [phone] [facility] [employer] EXTENSION MEDICARE SUPPLEMENT MEDICARE PART A & B [facility] [employer] MEDICARE SUPPLEMENT MEDICARE PART A & B [facility] [employer] MEDICARE SUPPLEMENT Care Teams Tobacco Stemmer Machine Relationship Specialty Start Date End Date Kevin Kevin MD [address] [place] [phone] PCP - General Internal Medicine 05/24/20 Additional Source Comments The information contained in this document represents components of the legal health record. It is not the complete legal health record.[facility]
--- OUTSIDE RECORDS SUMMARY | 2024-12-30 07:29 | XMS_ITS | Clinical Summary ---
Author Organization [facility] Address [address] [place] [address] Care Team Providers Care Machine Fitter Name Role Phone Unavailable Primary Care Provider Unavailabl e Immunizations Immunization Administration Dates Next Due Moderna Covid-19 Vaccine 6+ Bivalent 04/26/2022 Social History Tobacco Use Types Packs/Day Years Used Date Smoking Tobacco: Never Assessed Comments Unknown Sex and Gender Information Value Date Recorded Sex Assigned at Female 02/25/2022 10:40 AM EDT Legal Sex Female 10:40 AM EDT Gender Identity Female 02/25/2022 10:40 AM EDT Sexual Orientation Straight 02/25/2022 10 :40 AM EDT Plan of Treatment Health Maintenance Due Date Last Done Comments CT Colonography 1951 Colonoscopy 1951 Colorectal Cancer Screening 1951 Depression Screening 1951 FIT DNA/Cologuard 1951 FIT 1951 FOBT 1951 Lipid Panel 1951 SDOH Screening 1951 Sigmoidoscopy 1951 Alcohol/Substance Use Screening 1963 Tobacco Screening 1963 Hepatitis C Screening 11/21/1969 Mammogram 1991 Zoster Vaccines (1 of 2) 11/21/2001 COVID-19 Vaccine (2024- season) 2024 04/26/2022, 09/20/2021, 04/19/2021, Additional history exists Influenza Vaccine (#1) 2024 02/19/2022, 2019 RSV Patients and Patients Aged 60 years or older (1 - 1-dose 75+ series) 11/21/2026 DTaP/Tdap/Td Vaccines (3 - Td or Tdap) 12/19/2031 12/18/2021, 12/09/2011, 08/13/2000 Pneumococcal Vaccine: 50+ Years Completed 03/03/2019, 02/14/2017 HIB Vaccines Aged Out No longer eligi [...] patient's age to complete this topic Meningococcal Vaccine Aged Out No lorelei rosario eligible based on patient's age to complete this topic RSV under 20 months Aged Out No longe r eligible based on patient's age to complete this topic Rotavirus Vaccines Aged Out No longer eligible based on patient's age to complete this topic Insurance MEDICARE
== END 2024-12-30 07:26 | disposition home or self-care (01) ==
LOC: HO.MRI 07:25
PROVIDERS: Visit Provider Registered Nurse
DX: I67.850 Cerebral autosomal dominant arteriopathy with subcortical infarcts and leukoencephalopathy (principal); F01.53 Vascular dementia, unspecified severity, with mood disturbance
CPT/HCPCS: 70551

== ENCOUNTER 2025-04-14 11:40 | Outpatient (AMB) | payer MEDICARE, OTHER, SELFPAY ==
--- NOTE | 2025-04-14 11:45 | A.OFFVIS_ITS ---
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 She is presenting for follow-up on memory loss and unsteadiness. She reports issues with memory, gait instability, nervousness, and shaking. Her symptoms are attributed to a genetic condition that causes dementia, forgetfulness, and loss of balance, which is a result of an accumulation of multiple small, microscopic strokes over many years. She also reports experiencing urinary frequency. For her memory, the patient takes memantine and feels it is helping. She is also on sertraline, with the dose having been reduced from 100 mg to 50 mg, which she takes at night. [facility] Medical History (Updated 04/14/25 @ 11:48 by Ngoc Peterson MD) Vascular dementia Hyperlipidemia Pacemaker Review of Systems Narrative - Neurological: Reports memory impairment, gait instability, and shaking. - Psychiatric: Reports feeling nervous. - Genitourinary: Reports urinary frequency. Physical Exam Neuro Other: Mental Status: Alert and oriented to person, place, and time. Normal attention. Normal spontaneous speech, fluency, and comprehension. Cranial Nerves: CN II: Visual sheikh full to confrontation, visual acuity intact. CN III, IV, : Pupils equal, round, reactive to light and accommodation. Extraocular movements are normal. CN V: Facial sensation is normal. CN VII: Facial movements symmetrical. CN VIII: Hearing intact to bedside conversation is normal. CN IX, X: Palate elevates symmetrically. CN XI: Shoulder shrug and head turn symmetrical. CN XII: Tongue midline without atrophy or fasciculations. Extrapyramidal: Full facial expressions and blinking. No rigidity. Movements are appropriate with no tremor or abnormality. Speech: Normal; no dysarthria or tremor. Assessment & Plan Assessment & Plan (1) Vascular dementia: Comment: MRI brain WO at [facility] in Dec 2024: Extensive small vessel disease of brain Labs in [place] in 2021: CBC ok, HDL 74, LDL 102, A1c5.2, TSH 2.9, CEA 0.83, MRI brain WO at [facility] in Jul 2021: mod to sev WM changes suggestive of MVD CT brain WO at [facility] in Jul 2021: diff WM hypo densities MRI brain WWO at [facility] in Mar 2016: mod severe WM lesions, mostly supratentorial, post predominance, no enhancement, small amount in yoni, ?demyelinating or atypical microvascular disease CT brain WO at [facility] in 2013: WM hypo densities, especially left frontal, no atrophy. Code(s): F01.50 - Vascular dementia, unspecified severity, without behavioral disturbance, psychotic disturbance, mood disturbance, and anxiety Category: Medical Qualifiers: Dementia severity: unspecified severity Dementia behavioral or psychological symptom: with mood disturbance Qualified Code(s): F01.53 - Vascular dementia, unspecified severity, with mood disturbance Plan Impression: Vascular dementia with brain MRI revealing extensive microvascular ischemic disease somewhat suggestive of CADASIL. Recommendations: 1. Reassurance and education. I talked to her in length and also her brother. 2. Memantine 10 mg twice a day 3. Sertraline 50 mg with breakfast 4. Control of vascular risk factors including blood pressure I reviewed the patient's brain MRI with her and explained that her symptoms of forgetfulness and unsteadiness are caused by multiple small strokes resulting from an incurable genetic condition. I reassured her that while the condition is progressive over decades, it is not fatal. We discussed her medications, and I advised her to continue memantine if she finds it helpful and to change her sertraline 50 mg dose to be taken in the morning. I advised against spending money on natural remedies as there is no effective treatment for her condition. I acknowledged her upcoming urology appointment for urinary frequency, noting it is related to her neurological diagnosis. We will have a follow-up appointment in six months. Medications: New sertraline 50 mg PO DAILY 90 tabs 1RF Refilled memantine 10 mg PO BID 180 tabs 1RF Coding Level of Care Code Est Pt Level 4 (32121) Diagnoses Vascular dementia with mood disturbance, unspecified dementia severity F01.53 Dementia severity: unspecified severity Dementia behavioral or psychological symptom: with mood disturbance
--- OUTSIDE RECORDS SUMMARY | 2025-04-14 15:23 | XMS_ITS | Encounter Summary ---
Author Organization [facility] Address [address] [place] [address] Care Team Providers Care Barber Apprentice Name Role Phone Kevin Kevin MD Primary Care Provider [phone] Encounter Details Date Type Department Care Team (Late Contact Info) Description 10/28/[address] [facility] - Main Lab [address] [place] [id number] Lorenzo Paige PA [address] [facility] [address] [place] [address] Pyuria Social History Tobacco Use Types Packs/Day [...] Encounters Date Type Department Care Team (Late Contact Info) Description 04/15/2025 1:00 PM EST Consult Pulmonology - [place] [address] [place] [phone] Hermila Fuller MD [address] [place] [phone] 05/03/2025 1:20 PM EST Appointment Radiology Department - [address] [phone] documented as of this encounter Procedures Procedure Name Priority Date/Time Associated Diagnosis Comments CULTURE URINE Routine 10/28/2024 10:34 AM EDT Pyuria documented in this encounter Results * (ABNORMAL) Culture urine (10/28/2024 10:34 AM EDT) Culture, Urine >100,000 CFU/mL Escherichia coli(A) [place] 10/30/2024 9:26 AM EDT [facility] Urine Urine specimen from [...] MICROBIOLOGY - GENERAL ORDER RAMY Final Result [facility] [address] [place] [address], documented in this encounter Visit Diagnoses Diagnosis Pyuria Other nonspecific finding on examination of urine documented in this encounter Care Teams Barber Apprentice Relationship Specialty Start Date End Date Kevin Kevin MD [address] [place] [id number] PCP - General 02/25/1999 documented as of this encounter
--- OUTSIDE RECORDS SUMMARY | 2025-04-14 15:24 | XMS_ITS | Clinical Summary ---
Author Organization [facility] Address [address] [place] [address] Phone Care Team Providers Care Angular Js Developer Name Role Phone Kevin Kevin MD Primary Care Provider [phone] Immunizations Immunization Administration Dates Next Due COVID-19 [...] 12/08/2021 12/09/2011 , 08/13/2000 MAMMOGRAM 03/20/2022 03/20/2020 INFLUENZA VACCINE (#1) 2024 02/18/2020 COVID-19 VACCINE (3 - 2024-2 6 season) 2024 06/22/2020, 05/25/2020 LIPID PANEL 04/26/2025 04/26/2020 RSV [...] file Insurance MEDICARE PART A & B [facility] EXTENSION MEDICARE SUPPLEMENT MEDICARE PART A & B [employer] MEDICARE SUPPLEMENT MEDICARE PART A & B [employer] MEDICARE SUPPLEMENT MEDICARE PART A & B [employer] MEDICARE SUPPLEMENT MEDICARE PART A & B [employer] MEDICARE SUPPLEMENT MEDICARE PART A & B [facility] [employer] MEDICARE SUPPLEMENT MEDICARE PART A & B Member Subscriber Plan / Payer ( fective 2016-Present) Name:Loreta Payne Member ID:[id number] Relation to Subscriber:Self Name:Loreta Payne Subscriber ID:[id number] Payer ID:[id number] Group ID:Not on file Type:Medicare Address: [employer] [address] [place] [phone] [facility] [employer] EXTENSION MEDICARE SUPPLEMENT MEDICARE PART A & B [facility] EX[employer]ION MEDICARE SUPPLEMENT MEDICARE PART A & B [facility] [employer] MEDICARE SUPPLEMENT Care Teams Angular Js Developer Relationship Specialty Start Date End Date Kevin Kevin MD [address] [place] [phone] PCP - General Internal Medicine 05/24/20 Additional Source Comments The information contained in this document represents components of the legal health record. It is not the complete legal health record.[facility]
--- OUTSIDE RECORDS SUMMARY | 2025-04-14 15:24 | XMS_ITS | Clinical Summary ---
Author Organization [facility] [address] [place] [address] [place] [phone] Phone Care Team Providers Care Development Team Lead Name Role Phone Kevin Kevin MD Primary Care Provider [phone] Allergies Active Allergy Reactions Criticality Noted Date Comments Nitrofurantoin 04/11/2014 Nausea and vomiting Simvastatin Other 01/12/2025 Pt. takes atorvastatin at home Venlafaxine Weakness 12/12/2005 DIZZY, WEAK, NAUSEA Medications multivitamin with minerals (CENTRUM) tablet Take 1 tablet by mouth 1 (one) time each day. Take by mouth daily. Patient Buy OTC Active metoprolol succinate (TOPROL-XL) 50 mg 24 hr tabletIndications:En counter for examination following treatment at hospital,Encounter for screening for cardiovascular disorders,Pure hypercholesterolemia ,SSS (sick sinus syndrome) (CMS/HCC V24, CMS/HCC V28),Cerebrovascular accident (CVA), unspecified mechanism (CMS/HCC V24, CMS/HCC V28),Chest pain, unspecified type Take 1 tablet (50 mg total) by mouth 1 (one) time each day. Do not crush or chew. 90 tablet 1 5 Active atorvastatin (LIPITOR) 40 mg tabletIndications:En counter for examination following treatment at hospital,Encounter for screening for cardiovascular disorders,Pure hypercholesterolemia ,SSS (sick sinus syndrome) (CMS/HCC V24, CMS/HCC V28),Cerebrovascular accident (CVA), unspecified mechanism (CMS/HCC V24, CMS/HCC V28),Chest pain, unspecified type Take 1 tablet (40 mg total) by mouth 1 (one) time each day. 30 each 5 5 05/15/19 26 Active aspirin 81 mg EC tabletIndications:En counter for examination following treatment at hospital,Encounter for screening for cardiovascular disorders,Pure hypercholesterolemia ,SSS (sick sinus syndrome) (CMS/HCC V24, CMS/HCC V28),Cerebrovascular accident (CVA), unspecified mechanism (CMS/HCC V24, CMS/HCC V28),Chest pain, unspecified type Take 1 tablet (81 mg total) by mouth 1 (one) time each day. 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 MRI ordered by Dr. Peterson neurologist who has been following patient (MRI uploaded to [facility] under imaging). Patient father and siblings has a known history of early onset dementia Severe dementia with anxiety 11/23/2024 Overview (11/23/2024): Complex with multiple components, history of stroke, anxiety, Alzheimer's disease, follows with neurology H. pylori infection 09/19/2021 SSS (sick sinus syndrome) 03/25/2018 Forgetfulness 12/22/2017 White matter disease, unspecified [...] Future Osteopenia 03/17/2012 Pure hypercholesterolemia 03/30/2010 Stroke 03/30/2010 Overview (04/27/2024): Left sided hand numbness, see note 03/30/10. Headache 10/21/2007 Overview (04/27/2024): Hospitalization at [facility], , carotid US (-) Fibromyalgia 10/24/2006 Overview (04/27/2024): RF + at 10 onset 2003 IMO update Assessment & Plan (11/23/2024 12:29 PM EDT): Resolved Problems Problem Noted Date Diagnosed Date Resolved Date Cardiac pacemaker in situ 10/31/2005 Immunizations Immunization Administration Dates Next Due Influenza Quadravalent, MDCK [...] Headache(784.0) 10/21/2007 DX:Headache(784. 0); COMMENT: Hospitalization at [facility], , carotid US (-) Atypical chest pain 04/18/2008 DX:Atypical chest pain; COMMENT: Exercise stress test, CT angiogram negative. See cardiology notes 2003 Anxiety state, unspecified 07/07/2005 DX:An xiety state, unspecified; COMMENT: Panic attacks; depression Seen by Dr. Lindsey Stroke ([facility] V24, [facility] V28) 03/30/2010 DX:Stroke ([facility]) Pure hypercholesterolemia 03/30/2010 DX:Pur e hypercholesterolemia Other [...] care for your loved ones. For example, director of child welfare services or elderly care for an older adult? [...] Date Recorded What is your living situation? Unrecognized valu e 11/23/2024 Comments No Sex and Gender Information [...] Sign Reading Time Taken Comments Blood Pressure 92/57 01/12/2025 2:09 PM EDT Pulse 60 01/12/2025 2:09 PM EDT Temperature 36.1 C (97 F) 01/12/2025 2:09 PM EDT Respiratory Rate 14 01/12/2025 2:09 PM EDT Oxygen Saturation 97% 01/12/2025 2:09 PM EDT Inhaled Oxygen Concentration - - Weight 58.5 kg (129 lb) 01/12/2025 2:09 PM EDT Height 149.9 cm (4' 11 ) 01/12/2025 2:09 PM EDT Body Mass Index 26.05 01/12/2025 2:09 PM EDT Plan of Treatment Upcoming Encounters Date Type Department Care Team (Late st Contact Info) Description 04/15/2025 1:00 PM EST Consult Pulmonology - [address] [place] [id number] Hermila Fuller MD [address] [place] [phone] 05/03/2025 1:20 PM EST Appointment Radiology Department - [address] [phone] Health Maintenance Due Date Last Done Comments Colorectal Cancer Screening: Colonoscopy 1950 Zoster Vaccines (2 of 2) 02/18/2011 12/24/2010 Medicare Annual Wellness Visit 04/06/2022 Cervical Cancer Screening: HPV 07/28/2022 07/28/2017 COVID-19 Vaccine ( season) 2024 04/26/2022, 09/20/2021, 04/19/2021, Additional history exists Influenza Vaccine (#1) 2024 , 02/19/2022, 02/18/2020 Hypertension/CHF/CAD Annual BMP Blood Test 11/17/2025 11/17/2024, 04/29/2023 Falls Risk Assessment 11/23/2025 11/23/2024 Social Influencers of Health Screening 11/23/2025 11/23/2024 Breast Cancer Screening 04/29/2026 04/29/19, 04/14/2023, 04/12/2022, Additional history exists RSV Immunization [...] Procedure Name Priority Date/Time Associated Diagnosis Comments COMPREHENSIVE METABOLIC PANEL Routine 11/17/2024 12:00 PM EDT Encounter for examination following treatment at hospital Encounter for screening for cardiovascular disorders Pure hypercholesterolemia SSS (sick sinus syndrome) ([facility] V24, CMS/[facility] V28) Cerebrovascular accident (CVA), unspecified mechanism (CMS/HCC V24, CMS/HCC V28) Chest pain, unspecified type LIPID PANEL WITH REFLEX TO DIRECT LDL Routine 11/17/2024 12:00 PM EDT Encounter for examination following treatment at hospital Encounter for screening for cardiovascular disorders Pure hypercholesterolemia SSS (sick sinus syndrome) (CMS/HCC V24, CMS/HCC V28) Cerebrovascular accident (CVA), unspecified mechanism (CMS/HCC V24, CMS/HCC V28) Chest pain, unspecified type MG MAMMO DIGITAL SCREENING W CHANDLER BILAT Routine 04/29/2024 2:53 PM EST Encounter for screening mammogram for breast cancer DXA BONE DENSITY STUDY 1+ SITS AXIAL SKEL Routine 11/23/2021 11:06 AM EDT Encounter for general adult medical examination without abnormal findings Cerebral infarction, unspecified (CMS/HCC V24, CMS/HCC V28) Presence of cardiac pacemaker Pure hypercholesterolemia, unspecified Vitamin D deficiency, unspecified Unspecified dyspareunia (CODE) Other specified disorders of bone density and structure, unspecified site HPV Routine 07/28/2017 HEPATITIS C SCREENING Routine 09/06/2014 from Last 3 Months or Most Recently Relevant to Health Maintenance Results * (ABNORMAL) Lipid panel with reflex to direct LDL (11/17/2024 12:00 PM EDT) Cholesterol 197 0 - 200 mg/dL LAB CHEMISTRY METHOD 11/17/2024 3:17 PM EDT [facility] Triglycerides 94 0 - 150 mg/dL LAB CHEMISTRY METHOD 11/17/2024 3:17 PM EDT [facility] HDL 77 >=40 mg/dL LAB CHEMISTRY METHOD 11/17/2024 3:17 PM EDT [facility] LDL Calculated 101(H) 0 - 100 mg/dL LAB CHEMISTRY METHOD 11/17/2024 3:17 PM EDT [facility] VLDL Cholesterol Missael 18.8 mg/dL LAB CHEMISTRY METHOD 11/17/2024 3:17 PM EDT [facility] Non HDL Chol. (LDL+VLDL) 120 <145 mg/dL LAB CHEMISTRY METHOD 11/17/2024 3:17 PM EDT [facility] Chol/HDL Ratio 2.6 0.0 - 4.4 LAB CHEMISTRY METHOD 11/17/2024 3:17 PM T [facility] Blood Venous blood specimen / Unknown Venipuncture / Unknown 11/17/2024 12:00 PM EDT 11/17/2024 12:03 PM EDT us El Cevallos [employer] LAB BLOOD ORDERABLES Final R esult [facility] [address] [place] [address], * Comprehensive metabolic panel (11/17/2024 12:00 PM EDT) Sodium 141 133 - 145 mmol/L LAB CHEMISTRY METHOD 11/17/2024 3:17 PM [facility] Potassium 3.9 3.5 - 5.5 mmol/L LAB CHEMISTRY METHOD 11/17/2024 3:17 PM [facility] Chloride 109 96 - 110 mmol/L LAB CHEMISTRY METHOD 11/17/2024 3:17 PM [facility] CO2 26 21 - 32 mmol/L LAB CHEMISTRY METHOD 11/17/2024 3:17 PM [facility] Anion Gap 6 3 - 11 LAB CHEMISTRY METHOD 11/17/2024 3:17 PM [facility] Glucose 99 70 - 100 mg/dL LAB CHEMISTRY METHOD 11/17/2024 3:17 PM [facility] BUN 17 5 - 25 mg/dL LAB CHEMISTRY METHOD 11/17/2024 3:17 PM [facility] Creatinine 0.89 0.50 - 1.10 mg/dL LAB CHEMISTRY METHOD 11/17/2024 3:17 PM T [facility] eGFR 69 >=60 mL/min/1. 73m2 LAB CHEMISTRY METHOD 11/17/2024 3:17 PM [facility] Comment:Calculation based on the Chronic Kidney Disease Epidemiology Collaboration (CKD-EPI) equation refit without adjustment for race. BUN/Creatinine Ratio 19.1 LAB CHEMISTRY METHOD 11/17/2024 3:17 PM T [facility] Calcium 9.2 8.5 - 10.5 mg/dL LAB CHEMISTRY METHOD 11/17/2024 3:17 PM [facility] AST (SGOT) 21 10 - 42 unit/L LAB CHEMISTRY METHOD 11/17/2024 3:17 PM [facility] ALT (SGPT) 21 10 - 60 unit/L LAB CHEMISTRY METHOD 11/17/2024 3:17 PM [facility] Alkaline Phosphatase 72 42 - 121 unit/L LAB CHEMISTRY METHOD 11/17/2024 3:17 PM [facility] Total Protein 7.0 6.0 - 8.0 g/dL LAB CHEMISTRY METHOD 11/17/2024 3:17 PM [facility] Albumin 4.0 3.2 - 5.0 g/dL LAB CHEMISTRY METHOD 11/17/2024 3:17 PM [facility] Total Bilirubin 0.3 0.0 - 1.4 mg/dL LAB CHEMISTRY METHOD 11/17/2024 3:17 PM [facility] Blood Venous blood specimen / Unknown Venipuncture / Unknown 11/17/2024 12:00 PM EDT 11/17/2024 12:03 PM EDT us El Cevallos NP LAB BLOOD ORDERABLES Final R esult [facility] [address] [place] [address], * MG Mammo Digital Screening w Chandler bilat (04/29/2024 2:53 PM EST) Anatomical Region Laterality Modality Breast Bilateral Mammography 04/30/2024 12:2 6 PM EST Impressions 04/30/2024 12:31 PM EST 1. No mammographic evidence of malignancy 2. Scattered fibroglandular tissue BI-RADS CATEGORY: 2 - BENIGN RECOMMENDATION: Screening bilateral mammogram is recommended in 1 year. Mammo Location: [facility], [address] [place] [address], [id number], . -------- FINAL REPORT -------- Dictated By: Grabiel Aguilar Dictated Date: 04/30/2024 12:26 ET Assigned Physician: Grabiel Aguilar Reviewed and Electronically Signed By: Grabiel Aguilar Signed Date: 04/30/2024 12:31 ET Workstation ID: [id number] Transcribed By: Self Edit Transcribed Date: 04/30/2024 [...] is recommended in 1 year. Mammo Location: [facility], [address] [place] [address], [id number], . -------- FINAL REPORT -------- Dictated By: Grabiel Aguilar Dictated Date: 04/30/2024 12:26 ET Assigned Physician: Grabiel Aguilar Reviewed and Electronically Signed By: Grabiel Aguilar Signed Date: 04/30/2024 12:31 ET Workstation ID: [id number] Transcribed By: Self Edit Transcribed Date: 04/30/2024 [...] (World Health Organization Fracture Risk Assessment) [facility] Department of Internal Medicine recommends using National [...] (World Health Organization Fracture Risk Assessment) [facility] Department of Internal Medicine recommendsusing National Osteoporosis [...] of fracture risk by FRAX. Danni Linda NP IMG DXA PROCEDURES Final R esult * Cervical Cancer Screening: HPV (07/28/2017) [facility] Cervical Cancer Screening: HPV Negative Abstracted Historical Provider HEALTH MAINTENANCE Final Result * Hepatitis C Screening (09/06/2014) [facility] Hepatitis C Screening Abstracted Historical Provider HEALTH MAINTENANCE Final Result from Last 3 Months or Most Recently Relevant to Health Maintenance Insurance MEDICARE [facility] Care Teams Development Team Lead Relationship Specialty Start Date End Date Kevin Kevin MD [address] [place] [place] [id number] PCP - General 02/25/1999
== END 2025-04-14 11:58 | disposition home or self-care (01) ==
LOC: HO.HSM 11:41
PROVIDERS: PCP Internal Medicine; Referring Provider Internal Medicine; Visit Provider Psychiatry & Neurology Neurology
DX: F01.53 Vascular dementia, unspecified severity, with mood disturbance (principal)
CPT/HCPCS: 99214

== ENCOUNTER → 2025-04-14 11:40 | Outpatient (BNVA) | payer MEDICARE, OTHER, SELFPAY | PROVIDERS: PCP Internal Medicine; Referring Provider Internal Medicine; Visit Provider Psychiatry & Neurology Neurology | DX: F01.53 Vascular dementia, unspecified severity, with mood disturbance (principal) | CPT/HCPCS: 99212 ==